=== PATIENT | female | born 1955 | race Caucasian/White ===

== ENCOUNTER → 2023-08-09 15:13 | Outpatient (REF) | payer OTHER, SELFPAY | LOC: HWRAD 15:13 | PROVIDERS: ATTENDING PHYSICIAN Family Medicine | DX: Z78.0 Asymptomatic menopausal state (principal) | CPT/HCPCS: 77080 ==

== ENCOUNTER → 2023-09-07 12:23 | Outpatient (REF) | payer OTHER, SELFPAY | LOC: HWRAD 12:23 | PROVIDERS: ATTENDING PHYSICIAN Nurse Practitioner | DX: M25.561 Pain in right knee (principal) | CPT/HCPCS: 73564 ==

== ENCOUNTER → 2023-09-22 10:20 | Outpatient (REF) | payer OTHER, SELFPAY | LOC: RAD 10:20 | PROVIDERS: ATTENDING PHYSICIAN Physician Assistant; FAMILY PHYSICIAN Family Medicine | DX: M79.671 Pain in right foot (principal) | CPT/HCPCS: 73630 ==

== ENCOUNTER 2023-12-07 10:04 | Outpatient (RCR) | payer OTHER, SELFPAY | END 2023-12-07 23:59 | disposition home or self-care (01) | LOC: ROT 10:04 | PROVIDERS: ATTENDING PHYSICIAN Family Medicine | DX: M77.8 Other enthesopathies, not elsewhere classified (principal); Z73.6 Limitation of activities due to disability; M25.532 Pain in left wrist | CPT/HCPCS: 97166; 97535 ==

== ENCOUNTER 2023-12-22 08:57 | Outpatient (RCR) | payer OTHER, SELFPAY | END 2023-12-22 23:59 | disposition home or self-care (01) | LOC: ROT 08:57 | PROVIDERS: ATTENDING PHYSICIAN Family Medicine | DX: M77.8 Other enthesopathies, not elsewhere classified (principal) | CPT/HCPCS: 97010; 97110 ==

== ENCOUNTER → 2024-01-04 15:11 | Outpatient (REF) | payer OTHER, SELFPAY | LOC: PAVMRI 15:11 | PROVIDERS: ATTENDING PHYSICIAN Family Medicine | DX: M54.16 Radiculopathy, lumbar region (principal) | CPT/HCPCS: 72148 ==

== ENCOUNTER → 2024-01-18 06:21 | Day surgery (SDC) | payer OTHER, SELFPAY ==
[2024-01-18 07:35] LABS: Glucose - Point of Care 150 mg/dl (70-99)
== END ==
LOC: GI 06:21
PROVIDERS: ATTENDING PHYSICIAN Internal Medicine Gastroenterology
DX: R19.4 Change in bowel habit (principal); K64.8 Other hemorrhoids; K57.30 Diverticulosis of large intestine without perforation or abscess without bleeding
CPT/HCPCS: 45378; 82962

== ENCOUNTER → 2024-01-28 10:13 | Outpatient (REF) | payer OTHER, SELFPAY | LOC: HWRAD 10:13 | PROVIDERS: ATTENDING PHYSICIAN Urology; FAMILY PHYSICIAN Family Medicine | DX: N39.0 Urinary tract infection, site not specified (principal); N20.0 Calculus of kidney; M62.89 Other specified disorders of muscle; N95.8 Other specified menopausal and perimenopausal disorders | CPT/HCPCS: 76770; 76856 ==

== ENCOUNTER → 2024-02-25 14:03 | Outpatient (REF) | payer OTHER, SELFPAY | LOC: HWWDC 14:03 | PROVIDERS: ATTENDING PHYSICIAN Family Medicine | DX: Z12.31 Encounter for screening mammogram for malignant neoplasm of breast (principal) | CPT/HCPCS: 77063; 77067 ==

== ENCOUNTER → 2024-03-06 10:19 | Outpatient (REF) | payer OTHER, SELFPAY ==
[2024-03-06 12:09] LABS: % Basophils 0.9 % (0-2); % Eosinophils 1.3 % (0-6); % Immature Granulocytes 0.8 % (0-0.5); % Lymphocytes 22.5 % (20.5-51.1); % Monocytes 9.8 % (1.7-9.3); % Neutrophils 64.7 % (42.2-75.2); Absolute Basophils 0.1 10^3/uL (0-0.2); Absolute Eosinophils 0.1 10^3/uL (0-0.7); Absolute Immature Granulocytes 0.1 10^3/uL (0-0.05); Absolute Lymphocytes 1.8 10^3/uL (1.2-3.4); Absolute Monocytes 0.8 10^3/uL (0.1-0.6); Absolute Neutrophils 5.1 10^3/uL (1.4-6.5); Hematocrit 33.7 % (37.0-47.0); Hemoglobin 11.6 g/dL (12.0-16.0); Mean Corp Hgb Conc. 34.4 g/dL (33.0-37.0); Mean Corpuscular Hgb 34.5 pg (27.0-31.0); Mean Corpuscular Volume 100.3 fL (81.0-99.0); Mean Platelet Volume 9.7 fL (7.4-10.4); Nucleated Red Blood Cells % 0 %; Platelet Count 306 10^3/uL (130-400); Red Blood Cell Count 3.36 10^6/uL (4.20-5.40); Red Cell Dist. Width 12.5 % (11.5-14.5); White Blood Cell Count 7.9 10^3/uL (4.8-10.8)
[2024-03-06 12:35] LABS: Blood Urea Nitrogen 31 mg/dl (7-17); Carbon Dioxide 25 mmol/L (22-30); Chloride 101 mmol/L (98-107); Glucose 108 mg/dl (70-99); Iron 139 ug/dl (37-170); Potassium 5.1 mmol/L (3.5-5.1); Sodium 135 mmol/L (135-145)
[2024-03-06 12:44] LABS: Percent Saturation 46 % (20-50); Total Iron Binding Capacity 301 ug/dl (265-497)
[2024-03-06 13:06] LABS: TSH 0.61 uIU/ml (0.47-4.68)
[2024-03-06 13:42] LABS: Folate 8.6 ng/ml (2.76-20)
[2024-03-06 14:42] LABS: Vitamin B12 309 pg/ml (239-931)
== END ==
LOC: HWRAD 10:19
PROVIDERS: ATTENDING PHYSICIAN Otolaryngology; FAMILY PHYSICIAN Family Medicine
DX: E04.2 Nontoxic multinodular goiter (principal); R25.2 Cramp and spasm; R20.2 Paresthesia of skin; M48.061 Spinal stenosis, lumbar region without neurogenic claudication
CPT/HCPCS: 36415; 76536; 80048; 82607; 82728; 82746; 83540; 83550; 84443; 85025

== ENCOUNTER → 2024-05-05 15:01 | Outpatient (REF) | payer OTHER, SELFPAY | LOC: HWRCS 15:01 | PROVIDERS: ATTENDING PHYSICIAN Internal Medicine Cardiovascular Disease; FAMILY PHYSICIAN Family Medicine | DX: I10 Essential (primary) hypertension (principal); Z01.818 Encounter for other preprocedural examination; R94.31 Abnormal electrocardiogram [ECG] [EKG]; R06.09 Other forms of dyspnea | CPT/HCPCS: 93306 ==

== ENCOUNTER → 2024-05-11 11:06 | Outpatient (REF) | payer OTHER, SELFPAY | LOC: DHCBC/DCA 11:06 | PROVIDERS: ATTENDING PHYSICIAN Internal Medicine Cardiovascular Disease; FAMILY PHYSICIAN Family Medicine | DX: Z01.818 Encounter for other preprocedural examination (principal); R94.31 Abnormal electrocardiogram [ECG] [EKG]; R06.09 Other forms of dyspnea; I10 Essential (primary) hypertension | CPT/HCPCS: 78452; 93017; A9500; J2785 ==

== ENCOUNTER 2024-05-24 06:14 | Day surgery (SDC) | payer OTHER, SELFPAY ==
[2024-05-02 11:04] VITALS: BMI 33.0
[2024-05-02 11:30] LABS: Hematocrit 35.6 % (37.0-47.0); Hemoglobin 11.7 g/dL (12.0-16.0); Mean Corp Hgb Conc. 32.9 g/dL (33.0-37.0); Mean Corpuscular Hgb 34.6 pg (27.0-31.0); Mean Corpuscular Volume 105.3 fL (81.0-99.0); Mean Platelet Volume 9.9 fL (7.4-10.4); Platelet Count 366 10^3/uL (130-400); Red Blood Cell Count 3.38 10^6/uL (4.20-5.40); Red Cell Dist. Width 12.2 % (11.5-14.5); White Blood Cell Count 7.6 10^3/uL (4.8-10.8)
[2024-05-02 11:46] LABS: Glycohemoglobin (HgbA1c) 5.8 % (4.0-5.6)
[2024-05-02 11:54] LABS: ALT (SGPT) 27 U/L (0-35); AST (SGOT) 24 U/L (14-36); Albumin 4.3 g/dl (3.5-5.0); Alkaline Phosphatase 46 U/L (38-126); Blood Urea Nitrogen 30 mg/dl (7-17); Calcium 9.5 mg/dl (8.4-10.2); Carbon Dioxide 25 mmol/L (22-30); Chloride 101 mmol/L (98-107); Estimated Creatinine Clearance 42 ml/min; Glucose 117 mg/dl (70-99); Potassium 4.2 mmol/L (3.5-5.1); Sodium 138 mmol/L (135-145); Total Bilirubin 0.4 mg/dl (0.2-1.3); Total Protein 6.9 g/dl (6.3-8.2)
[2024-05-22 14:10] VITALS: BMI 33.0
--- NOTE | 2024-05-23 09:28 | VNURNOTE ---
Patient is scheduled for an elective THR on 05/24/24- she is a same day patient with Dr Lopez. Spoke with patient prior to surgery. Introduced role of [facility] Lia[facility]. Patient reports that she lives with spouse in a MULTI story home.
PCP Dr Arlene Cabello
Discussed [facility] joint protocol and post surgical plans.
Patient states plan is for her to stay overnight and will go to [facility] for outpatient PT. Scheduled for 05/26/24.
Patient states her spouse will be home with her.
Plan: Outpt PT on 05/26/24
[2024-05-24] VITALS (18 sets, daily range): BP systolic 96–129; BP diastolic 42–78; PULSE 62–65; O2SAT 91; BMI 33.0
[2024-05-24 07:37] LABS: Glucose - Point of Care 130 mg/dl (70-99)
[2024-05-24] MEDS: TYLENOL 650 MG PO ×3 (07:41→20:32)
[2024-05-24] MEDS: CELEBREX 200 MG PO (07:41)
[2024-05-24] MEDS: NORMOSOL-R/PLASMALYTE-A 1000 IV ×2 (07:53→13:06)
--- NOTE | 2024-05-24 07:58 | W.DS.TRANS ---
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
-
Discharge Instructions:
Sleep Apnea Risk Intermediate
Discharge Diagnosis/Procedures R TKA 05/24/23
Diet As tolerated
Activity With Walker
Driving Restrictions No driving
Bathing Restrictions OK to Shower
Other Services PT
Instructions:
Stand-Alone Forms: SDS Total Hip and Knee D/C
Changes to Home Medications: Yes
Discharge Medications:
DC Medications w/original date entered in [employer]
cholecalciferol (vitamin D3) 50 mcg (2,000 unit) capsule (Vitamin D3) 2,000 unit PO DAILY Supplement 04/22/18
imipramine HCl 10 mg tablet 10 mg PO QPM Mental Health/Anxiety 04/22/18
amlodipine 10 mg tablet 10 mg PO QPM ##1 05/19/18
aspirin 81 mg tablet,delayed release 81 mg PO DAILY Blood clot prevention/tx 05/08/20
atenolol 50 mg tablet 75 mg PO BID Blood pressure 05/08/20
evolocumab 140 mg/mL subcutaneous pen injector (Repatha SureClick) 140 mg SQ Q2W High cholesterol 08/02/21
ferrous sulfate 325 mg (65 mg iron) tablet (FeroSul) 325 mg PO DAILY Supplement 08/02/21
metformin 500 mg tablet 250 mg PO DAILY Diabetes 08/02/21
omega-3s 800 mg-dha 186.67 mg-epa 560 mg-fish-vit D3 8.33 mcg capsule (De3 Dry Eye [place] Benefits) 1 ea PO DAILY Supplement 08/02/21
hydralazine 25 mg tablet 25 mg PO TID Blood pressure 09/19/22
olmesartan 40 mg tablet 40 mg PO DAILY 09/19/22
lactobacillus combination no.4 3 billion cell capsule (Probiotic) 3,000 mmu cells PO DAILY 05/18/24
acetaminophen 325 mg tablet 650 mg (2 x 325 mg) PO QID #0 tabs 05/24/24
aspirin 325 mg tablet 325 mg PO DAILY blood clot prevention #1 tab 05/24/24
cefadroxil 500 mg capsule 500 mg PO BID infection prevention #14 caps 05/24/24
dexamethasone 4 mg tablet 4 mg PO BID inflammation #6 tabs 05/24/24
docusate sodium 100 mg capsule (Colace) 100 mg PO BID stool softner #1 cap 05/24/24
famotidine 40 mg tablet 40 mg PO HS 05/24/24
hydrocortisone 1 %-iodoquinol 1 % topical cream 1 applic topical DAILY PRN skin irritation 05/24/24
magnesium hydroxide 400 mg/5 mL oral suspension (Milk of Magnesia) 30 ml PO HS PRN Constipation #1 mL 05/24/24
mupirocin 2 % topical ointment 1 applic topical BID 05/24/24
ondansetron 4 mg disintegrating tablet 4 mg PO Q6H PRN n/v #20 tabs 05/24/24
oxycodone 5 mg tablet 5 mg PO Q6H PRN 1 tab moderate pain, 2 tabs severe pain #30 tabs 05/24/24
sennosides 8.6 mg tablet (Senokot) 17.2 mg (2 x 8.6 mg) PO BID laxative #2 tabs 05/24/24
spironolactone 25 mg tablet 25 mg PO DAILY 05/24/24
Home Medication Changes
aspirin 325 mg tablet 325 mg PO DAILY blood clot prevention #1 tab 05/24/24
cefadroxil 500 mg capsule 500 mg PO BID infection prevention #14 caps 05/24/24
dexamethasone 4 mg tablet 4 mg PO BID inflammation #6 tabs 05/24/24
docusate sodium 100 mg capsule (Colace) 100 mg PO BID stool softner #1 cap 05/24/24
famotidine 40 mg tablet 40 mg PO HS 05/24/24
hydrocortisone 1 %-iodoquinol 1 % topical cream 1 applic topical DAILY PRN skin irritation 05/24/24
magnesium hydroxide 400 mg/5 mL oral suspension (Milk of Magnesia) 30 ml PO HS PRN Constipation #1 mL 05/24/24
mupirocin 2 % topical ointment 1 applic topical BID 05/24/24
ondansetron 4 mg disintegrating tablet 4 mg PO Q6H PRN n/v #20 tabs 05/24/24
oxycodone 5 mg tablet 5 mg PO Q6H PRN 1 tab moderate pain, 2 tabs severe pain #30 tabs 05/24/24
sennosides 8.6 mg tablet (Senokot) 17.2 mg (2 x 8.6 mg) PO BID laxative #2 tabs 05/24/24
spironolactone 25 mg tablet 25 mg PO DAILY 05/24/24
Pending Results: No
[2024-05-24 10:14] LABS: Glucose - Point of Care 116 mg/dl (70-99)
[2024-05-24] MEDS: ROXICODONE 5 MG PO (11:36)
[2024-05-24] MEDS: TENORMIN PO (13:08)
[2024-05-24] MEDS: FEOSOL 325 MG PO (13:11)
[2024-05-24] MEDS: VISBIOME 1 CAP PO (13:12)
[2024-05-24] MEDS: GLUCOPHAGE PO (13:13)
[2024-05-24] MEDS: ULTRAM PO (13:26)
[2024-05-24] MEDS: ANCEF 5 IV (15:49)
[2024-05-24 16:53] LABS: Glucose - Point of Care 220 mg/dl (70-99)
[2024-05-24] MEDS: ASPIRIN 325 MG PO (17:48)
[2024-05-24] MEDS: TOFRANIL 10 MG PO (17:48)
[2024-05-24] MEDS: COLACE 100 MG PO (20:31)
[2024-05-24] MEDS: BACTROBAN 2% OINTMENT 1 APPLIC NASAL (20:31)
[2024-05-24] MEDS: SENOKOT 17.2 MG PO (20:31)
[2024-05-24] MEDS: TENORMIN 50 MG PO (20:31)
[2024-05-24] MEDS: ULTRAM 50 MG PO (20:32)
[2024-05-24] MEDS: DECADRON 4 MG IV (20:32)
[2024-05-24 21:40] LABS: Glucose - Point of Care 168 mg/dl (70-99)
[2024-05-24] MEDS: NEURONTIN 300 MG PO (22:30)
[2024-05-24] MEDS: PEPCID 20 MG PO (22:30)
[2024-05-25] MEDS: ANCEF 5 IV (00:34)
[2024-05-25] MEDS: TYLENOL 650 MG PO ×3 (00:34→08:15)
[2024-05-25] MEDS: MELATONIN 5 MG PO (00:34)
[2024-05-25 03:30] VITALS: BP 118/62
[2024-05-25] MEDS: ROXICODONE 5 MG PO ×2 (03:42→10:37)
[2024-05-25 08:00] VITALS: BP 127/58
[2024-05-25] MEDS: ASPIRIN 325 MG PO (08:13)
[2024-05-25 08:14] LABS: Glucose - Point of Care 141 mg/dl (70-99)
[2024-05-25] MEDS: BACTROBAN 2% OINTMENT 1 APPLIC NASAL (08:14)
[2024-05-25] MEDS: FEOSOL 325 MG PO (08:14)
[2024-05-25] MEDS: COLACE 100 MG PO (08:14)
[2024-05-25] MEDS: DECADRON 4 MG IV (08:14)
[2024-05-25] MEDS: TENORMIN 50 MG PO (08:15)
[2024-05-25] MEDS: ULTRAM 50 MG PO (08:15)
[2024-05-25] MEDS: SENOKOT 17.2 MG PO (08:15)
[2024-05-25] MEDS: VISBIOME 1 CAP PO (08:15)
[2024-05-25] MEDS: GLUCOPHAGE 500 MG PO (08:15)
--- NOTE | 2024-05-25 10:09 | W.PN.ORTHO ---
Today's Communication / Plan
-
d/c
Assessment
.
Dressing:
Clean, dry and intact.
Plan
.
Surgery / Date: R TKA 05/24/23
DVT Prophylaxis: Aspirin
Activity:
Out of bed.
PT/OT
Discharge Plan: Home w/ Outpatient PT
Subjective
.
.:
Patient resting comfortably.
Vital Signs and Labs
.
Vital Signs and Labs:
Lab Results
05/02/24 09:37
05/02/24 09:37
Temp Pulse Resp BP Pulse Ox
98.0 F 70 16 127/58 98
05/25/24 08:00 05/25/24 08:15 05/25/24 08:00 05/25/24 08:15 05/25/24 08:00
Non-invasive Hgb result: 10.6
Physical Exam
-
HEENT: No pallor, cyanosis, or jaundice. Throat clear.
NECK: Supple. No JVD.
RESPIRATORY: Lungs clear to auscultation.
CVS: S1, S2 normal. RRR.� No murmur, rub or gallop.
ABDOMEN: Soft, non-tender. No distension. BS+/normal.
EXTREMITIES: strength equal, no calf pain with palpation
GLOBAL CATEGORY MANAGER: AOx3. No focal deficits. 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
--- NOTE | 2024-05-25 11:01 | CM ---
Met with pt at bedside
Pt reports she lives with her in a 1 story, modular home; 2 steps to enter, FF set-up
Independent, retired, drives
DME - rolling walker, single point cane, commode, wheel chair, shower chair, toilet rails
SNF/HH - denies past hx
Has ride at discharge
PCP - Arlene Cabello
Pharm - [facility] on [address]
Has outpatient PT appt tomorrow 05/26 at [place] - Angelia Aguilar. Has RX. Has transportation
Plan - home with outpatient PT
[2024-05-25 12:04] VITALS: BP 135/62
== END 2024-05-25 12:29 | disposition home or self-care (01) ==
LOC: SDS 06:14
PROVIDERS: ATTENDING PHYSICIAN Orthopaedic Surgery; FAMILY PHYSICIAN Family Medicine; REFERRING PHYSICIAN Internal Medicine Cardiovascular Disease
DX: M17.11 Unilateral primary osteoarthritis, right knee (principal); E66.01 Morbid (severe) obesity due to excess calories; Z68.33 Body mass index [BMI] 33.0-33.9, adult
CPT/HCPCS: 27447; 36415; 73560; 80053; 82962; 83036; 85027; 86850; 86900; 86901; 87070; 97110; 97116; 97162; 97166; 97530; 97535; C1713; C1776

== ENCOUNTER → 2024-08-17 14:38 | Outpatient (REF) | payer OTHER, SELFPAY | LOC: HWRAD 14:38 | PROVIDERS: ATTENDING PHYSICIAN Internal Medicine; FAMILY PHYSICIAN Family Medicine | DX: N28.1 Cyst of kidney, acquired (principal) | CPT/HCPCS: 76770 ==

== ENCOUNTER 2024-09-16 16:43 | Inpatient (IN) | payer OTHER, SELFPAY ==
[2024-09-16 12:51] VITALS: BP 112/56
--- NOTE | 2024-09-16 13:26 | ED TECH ---
unable to obtain labs in triage.
[2024-09-16 14:21] VITALS: BMI 33.6
[2024-09-16 14:34] LABS: % Basophils 0.9 % (0-2); % Immature Granulocytes 1.1 % (0-0.5); % Lymphocytes 15.8 % (20.5-51.1); % Monocytes 9.5 % (1.7-9.3); % Neutrophils 70.7 % (42.2-75.2); Absolute Basophils 0.1 10^3/uL (0-0.2); Absolute Eosinophils 0.2 10^3/uL (0-0.7); Absolute Immature Granulocytes 0.1 10^3/uL (0-0.05); Absolute Lymphocytes 1.4 10^3/uL (1.2-3.4); Absolute Monocytes 0.9 10^3/uL (0.1-0.6); Absolute Neutrophils 6.5 10^3/uL (1.4-6.5); Hematocrit 35.7 % (37.0-47.0); Hemoglobin 12.4 g/dL (12.0-16.0); Mean Corp Hgb Conc. 34.7 g/dL (33.0-37.0); Mean Corpuscular Hgb 32.9 pg (27.0-31.0); Mean Corpuscular Volume 94.7 fL (81.0-99.0); Mean Platelet Volume 9.1 fL (7.4-10.4); Nucleated Red Blood Cells % 0 %; Platelet Count 382 10^3/uL (130-400); Red Blood Cell Count 3.77 10^6/uL (4.20-5.40); Red Cell Dist. Width 11.6 % (11.5-14.5); White Blood Cell Count 9.1 10^3/uL (4.8-10.8)
--- NOTE | 2024-09-16 14:49 | ED.GENMED ---
History of Present Illness
General
Chief Complaint: Abnormal Lab Value
Source: patient and spouse
Exam Limitations: none
Time Seen by Provider: 09/16/24 14:37
Nursing documentation reviewed up to this point in time: agreed with
History of Present Illness
History of Present Illness:
69-year-old female presents emergency department due to a high potassium. Blood work drawn yesterday, 6.5. 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 Rm She takes Aldactone 25 mg daily, and olmesartan. She states
she felt heavy this morning, but denies any pain or other symptoms.
Past History
Past History
ED Past Medical History: CAD, HTN and Hypercholesterolemia
ED Past Surgical History: None
Social History
Tobacco: Non-smoker
Alcohol: Occasional
Drug: None
Personal:
Living: with family
Employment: Retired
Family History
Family History: CAD
Review of Systems
Review of Systems
Allergies reviewed?: Yes
All Other Systems: Not applicable
Constitutional: Reports fatigue
EENT: Reports no symptoms
Respiratory: Reports no symptoms
Cardiac: Reports no symptoms
ABD/GI: Reports no symptoms
: Reports no symptoms
Musculoskeletal: Reports no symptoms
Skin: Reports no symptoms
Neurological: Reports no symptoms
Endocrine: Reports no symptoms
Hematologic/Lymphatic: Reports no symptoms
Psychiatric: Reports no symptoms
Phy Exam
Physical Exam
Physical Exam:
Patient will
Physical Exam
General: no apparent distress, not acutely ill
Neck: supple. no meningeal signs. normal posterior pharynx
Heart: s1/s2 regular rate and rhythm, no murmur. equal radial
pulses.
HEENT: Pupils equal round reactive to light, EOMI
Lungs: no acute respiratory distress. clear bilaterally
Abdomen: normal bowel sounds. not tender. no CVAT
Neuro: alert and oriented. no focal neurological deficits cranial nerves II through XII intact
Skin: no rash
Psychiatric: well kept. interactive and cooperative
Extremities: no edema. no calf tenderness. negative homans. good distal pulses
All
Course
Orders/Labs/Results
Orders:
Orders
09/16/24 12:55
Electrocardiogram (*1) Urgent
Reason for Study: Other
Other Reason for Exam: hyperkalemia
EKG- Treatment ONCE
09/16/24 14:25
Complete Blood Count/With Diff Urgent
Comprehensive Metabolic Panel Urgent
09/16/24 15:11
Cardiac Monitoring- Treatment ONCE
Dextrose 50%-Water [Dextrose 50% Syringe] 12.5 grams IV [id number] PRN
Dextrose 50%-Water [Dextrose 50% Syringe] 25 grams IV NOW STA
Insulin Human Regular [Novolin R] 5 units IV NOW STA
Bedside Glucose PRE IV Insulin- HyperK+ NOW
09/16/24 16:41
Bedside Glucose POST IV Insulin- HyperK+ Q1HX2,Q2HX2
09/16/24 17:41
Potassium Urgent
Comment: draw 2 hours after regular insulin IV administration
Abnormal Lab Results
09/16/24
14:25
RBC 3.77 L 10^6/uL
(4.20-5.40)
Hct 35.7 L %
(37.0-47.0)
MCH 32.9 H pg
(27.0-31.0)
Abs Immat Gran (auto) 0.1 H 10^3/uL
(0-0.05)
Absolute Monos (auto) 0.9 H 10^3/uL
(0.1-0.6)
Immature Gran % 1.1 H %
(0-0.5)
Lymphocytes % 15.8 L %
(20.5-51.1)
Monocytes % 9.5 H %
(1.7-9.3)
Sodium 124 L mmol/L
(135-145)
Potassium 6.5 H* mmol/L
(3.5-5.1)
Chloride 94 L mmol/L
(98-107)
Carbon Dioxide 16 L mmol/L
(22-30)
BUN 41 H mg/dl
(7-17)
Creatinine 1.8 H mg/dL
(0.6-1.0)
Glucose 106 H mg/dl
(70-99)
09/16/24 14:25
Vital Signs
Initial and Last Documented VS:
Initial Vital Signs
Temp Pulse Resp BP Pulse Ox
98.4 F 63 18 112/56 99
09/16/24 12:51 09/16/24 12:51 09/16/24 12:51 09/16/24 12:51 09/16/24 12:51
Last Documented Vital Signs
Temp Pulse Resp BP Pulse Ox
98.4 F 63 18 112/56 99
09/16/24 12:51 09/16/24 12:51 09/16/24 12:51 09/16/24 12:51 09/16/24 12:51
MDM/Problems Addressed
Differential Diagnosis Includes:
Hyperkalemia, hyponatremia, acute renal failure
MDM/Problems Addressed:
69-year-old female with acute renal failure, hyponatremia and hyperkalemia. Insulin and glucose ordered. Admit to hospitalist. Patient was sent in by nephrology. They have been notified by [place] text. Hospitalist notified via [place] text.
Chronic conditions affecting care: HTN
Acute Exacerbation and/or Progression of Chronic Illness: HTN
*Pulse Oximetry
Patient hypoxic: no
*EKG
Interpreted by ED Provider?: Yes
EKG Intrepretation Date: 09/16/24
EKG Intrepretation Time: 13:01
Interpretation: abnormal
Comparison EKG: no changes
Heart Rate: 61
Rate: normal
Rhythm: sinus
[place]: normal axis
Interval: first degree heart block
QRS Pattern: normal QRS
Ischemia: no ischemia
*Locks Inspector Interpretation
Rate: normal
Interpretation: normal
Heart Rate: 62
Rhythm: sinus
*Critical Care Note
Total Time (30-74mins, 75-104mins- exclusive of procedures): 31
comment:
Critical care statement: A total of 31 minutes of critical care time was provided for this patient. This includes management of unstable vital signs, evaluation of the patient at bedside, reviewing the patient's pertinent medical records, discussion
with consultants, review of old EKGs and review of pertinent medical records. This time with separate from time utilized to perform the aforementioned documented procedures
Data Reviewed
Review of Other/Old Records Reveals: Labs (Prior sodium 138, potassium 4.2 and creatinine 1.2 on 05/02/2024)
Source: records
Patient Management
Social determinants of health affecting care: Living situation and Strong social support
Discussion with other providers: Hospitalist and Mill Manager (Nephrology)
Escalation/DeEscalation of care consider admission/obs:
Admit indicated
ED Attending Note
-
Portions of this chart may have been created with voice recognition software.� Occasional wrong word or��sound alike� substitutions may have occurred due to the inherent limitations of voice recognition software.
Discharge Plan
Departure
Patient Disposition: Admit
Date of Disposition: 09/16/24
Time of Disposition: 15:15
Admit to: IMU
Presentation/result/management discussed w/ accepting MD/DO: Hospitalist
Patient with high blood pressure during this ER visit?: Yes
Condition: Good
Discharge Problem:
Acute hyperkalemia, Acute hyponatremia, Acute renal failure
Prescriptions:
No Action
imipramine HCl 10 MG tablet
10 mg PO QPM
cholecalciferol (vitamin D3) [Vitamin D3] 2,000 UNIT capsule
2,000 unit PO DAILY
amlodipine 10 MG tablet
10 mg PO QPM Qty: 1 0RF
Rx Instructions:
hold sbp <130
aspirin 81 MG tablet,delayed release (DR/EC)
81 mg PO DAILY
atenolol 50 MG tablet
75 mg PO BID
metformin 500 MG tablet
250 mg PO DAILY
ferrous sulfate [FeroSul] 325 MG tablet
325 mg PO DAILY
Repatha SureClick 140 MG/ML pen injector
140 mg SQ Q2W
De3 Dry Eye [place] Benefits 1 EACH capsule
1 ea PO DAILY
hydralazine 25 mg tablet
25 mg PO TID
olmesartan 40 mg tablet
40 mg PO DAILY
Probiotic 3 billion cell Capsule
3,000 mmu cells PO DAILY
famotidine 40 mg Tablet
40 mg PO HS
spironolactone 25 mg Tablet
25 mg PO DAILY
mupirocin 2 % Ointment
1 applic TOPICAL BID
Patient Comments:
started treatment wednesday05/21/24 and completed BID
hydrocortisone-iodoquinol 1-1 % Cream
1 applic TOPICAL DAILY PRN (Reason: skin irritation)
aspirin 325 mg tablet
325 mg PO DAILY Qty: 1 0RF
Rx Instructions:
Take with food
cefadroxil 500 mg capsule
500 mg PO BID Qty: 14 0RF
Rx Instructions:
*Take w/ food
*Take w/ probiotic
*POST-OP USE
dexamethasone 4 mg tablet
4 mg PO BID Qty: 6 0RF
Rx Instructions:
take with food
post-op use only
docusate sodium [Colace] 100 mg capsule
100 mg PO BID Qty: 1 0RF
magnesium hydroxide [Milk of Magnesia] 400 mg/5 mL suspension
30 ml PO HS PRN (Reason: Constipation) Qty: 1 0RF
ondansetron 4 mg tablet,disintegrating
4 mg PO Q6H PRN (Reason: n/v) Qty: 20 0RF
Rx Instructions:
take 1/2h b/f pain med if recurrent nausea
allow to dissolve in mouth w/o water
oxycodone 5 mg tablet
5 mg PO Q6H PRN (Reason: 1 tab moderate pain, 2 tabs severe pain) Qty: 30 0RF
Rx Instructions:
Ongoing therapy
sennosides [Senokot] 8.6 mg tablet
17.2 mg PO BID Qty: 2 0RF
acetaminophen 325 MG tablet
650 mg PO QID Qty: 0 0RF
gabapentin 300 mg capsule
300 mg PO HS Qty: 10 0RF
Interventions
Interventions:
*Risk Screen - Suicide Last Done: 09/16/24 12:51
*General Assessment Last Done: 09/16/24 12:51
*Neglect/Abuse Screening Last Done: 09/16/24 12:51
Discharge Date and Time
Print Language: YORUBA
[2024-09-16 14:58] LABS: ALT (SGPT) 23 U/L (0-35); AST (SGOT) 25 U/L (14-36); Alkaline Phosphatase 64 U/L (38-126); Blood Urea Nitrogen 41 mg/dl (7-17); Calcium 9.9 mg/dl (8.4-10.2); Carbon Dioxide 16 mmol/L (22-30); Chloride 94 mmol/L (98-107); Estimated Creatinine Clearance 27 ml/min; Glucose 106 mg/dl (70-99); Potassium 6.5 mmol/L (3.5-5.1); Sodium 124 mmol/L (135-145); Total Bilirubin 0.6 mg/dl (0.2-1.3); Total Protein 7.8 g/dl (6.3-8.2); eGFR 30.12
[2024-09-16] MEDS: NOVOLIN R 5 UNITS IV (15:21)
[2024-09-16] MEDS: DEXTROSE 50% SYRINGE 25 GRAMS IV (15:21)
[2024-09-16 15:22] LABS: Glucose - Point of Care 106 mg/dl (70-99)
--- NOTE | 2024-09-16 15:38 | HPS.HSE ---
Addendum entered and electronically signed by Jeremiah Subramanian MD 09/16/24 16:41:
see update note for addendum
Original Note:
Family Physician
-
Family Physician: Arlene Cabello
Chief Complaint
-
Abnormal labs, hyperkalemia
History of Present Illness
69-year-old female sent by nephrology in for hyperkalemia with potassium yesterday of 6.[address] Rm. Her current potassium is 6.5 in the ER she is on Aldactone 25 mg daily and olmesartan. In the ER she was treated with dextrose
and insulin. She denies headache, sore throat, fever, chills, chest pain, palpitations, cramping, cough, shortness of breath, abdominal pain, nausea, vomiting, diarrhea, urinary symptoms.
She had past medical history of CAD, HTN�multidrug regimen HLD, CKD 3 A, GERD, DM2, neuropathy, depression, iron deficiency vitamin D deficiency
Medical History
Past Medical History
Past Medical History: Reports Other
Additional Past Medical History:
CAD
HTN�multidrug regimen
HLD
CKD 3 A
GERD,
DM2
neuropathy
depression
Past Surgical History: Reports Other
Additional Past Surgical History:
Tonsillectomy
Bilateral knee replacement with [facility] last 10 May 2023
Social History
Tobacco: Non-smoker
Alcohol: Occasional (Once a week)
Drug: None
Personal:
Living: With Family
Employment: Retired
Family History
Family History: Other (Mother late 70s [place], father early 70s alcohol abuse cirrhosis, liver cancer, 1 brother Down syndrome history DM 2, other brother anxiety, 4 sisters some with hypertension)
Allergies / Home Medications
Allergies reflects when Allergies were last updated in [employer].
Home Medications with original date entered in [employer]
Allergy/Medication List:
Allergies
Allergy/AdvReac Type Severity Reaction Status Date / Time
Influenza Virus Vaccines Allergy Severe Guillane Verified 05/24/24 06:57
barre
latex Allergy Rash Verified 05/24/24 06:57
Home Medications
cholecalciferol (vitamin D3) 50 mcg (2,000 unit) capsule (Vitamin D3) 2,000 unit PO DAILY Supplement 04/22/18
amlodipine 10 mg tablet 10 mg PO QPM ##1 05/19/18
atenolol 50 mg tablet 75 mg PO BID Blood pressure 05/08/20
evolocumab 140 mg/mL subcutaneous pen injector (Repatha SureClick) 140 mg SQ Q2W High cholesterol 08/02/21
ferrous sulfate 325 mg (65 mg iron) tablet (FeroSul) 325 mg PO DAILY Supplement 08/02/21
metformin 500 mg tablet 250 mg PO DAILY Diabetes 08/02/21
omega-3s 800 mg-dha 186.67 mg-epa 560 mg-fish-vit D3 8.33 mcg capsule (De3 Dry Eye [place] Benefits) 1 ea PO DAILY Supplement 08/02/21
hydralazine 25 mg tablet 25 mg PO TID Blood pressure 09/19/22
olmesartan 40 mg tablet 40 mg PO DAILY 09/19/22
famotidine 40 mg tablet 40 mg PO HS 05/24/24
hydrocortisone 1 %-iodoquinol 1 % topical cream 1 applic topical DAILYPRN PRN skin irritation 05/24/24
spironolactone 25 mg tablet 25 mg PO DAILY 05/24/24
Lactobac no.2-Bifidobac no.1-S. thermo 112.5 billion cell capsule (Visbiome) 1 cap PO DAILY 09/16/24
acetaminophen 650 mg tablet,extended release 650 mg PO DAILYPRN PRN mild pain 09/16/24
aspirin 81 mg tablet 81 mg PO DAILY 09/16/24
gabapentin 100 mg capsule 200 mg PO DAILY@0800 09/16/24
gabapentin 300 mg capsule 300 mg PO BID@1600,2100 sleep/pain 09/16/24
hydrocortisone 2.5 % topical cream with perineal applicator 1 applic MO DAILYPRN PRN hemorrhoids 09/16/24
imipramine HCl 25 mg tablet 25 mg PO QPM 09/16/24
omeprazole 20 mg capsule,delayed release 20 mg PO BID 09/16/24
polyethylene glycol 3350 17 gram oral powder packet 17 g PO HS 09/16/24
silver sulfadiazine 1 % topical cream 1 applic topical DAILYPRN PRN skin irritation 09/16/24
tramadol 50 mg tablet 50 mg PO TID PRN moderate pain 09/16/24
Review of Systems
-
History Source: Patient and Family ( Bill at bedside)
A 12 point ROS was completed and negative except as noted: Yes
Constitutional: Denies Fever, Fatigue or Chills
EENT: Denies Runny Nose
Respiratory: Denies Cough or Trouble Breathing
Cardiac: Denies Chest Pain, Diaphoresis, Palpitations or Syncope
Abdomen/GI: Denies Abdominal Pain, Nausea, Vomiting, Diarrhea, Constipated or Bloody Stools
: Denies Dysuria, Frequency, Flank Pain, Incontinence, Difficulty Voiding, Urgency or Bleeding
Musculoskeletal: Denies Joint Pain, Joint Swelling or Edema
Skin: Denies Itching or Rash
Neurological: Reports Other (No muscle cramping); Denies Dizzy, Headache, Weakness or Numbness
Endocrine: Reports No Symptoms
Hematologic/Lymphatic: Reports No Symptoms
Psych: Reports Calm
Physical Exam
Vital Signs
Vital Signs
Temp Pulse Resp BP Pulse Ox
98.4 F 63 18 112/56 99
09/16/24 12:51 09/16/24 12:51 09/16/24 12:51 09/16/24 12:51 09/16/24 12:51
Physical Exam
General: Comfortable and Conversant; No Pain, Fever or Chills
HEENT: NormoCephalic, Anicteric, Moist mucous membranes, PERRLA, [place] Conjunctivae and No Ptosis
Respiratory: Clear; No Wheezes, Rales or Rhonchi
Cardiac: S1/S2 and Regular Rhythm; No Murmur, Rub, Gallop or Peripheral Edema
Breast: Deferred by me
GI: Soft, Non Tender, Non Distended, Normal Bowel Sounds and No Hepatosplenomegaly
Rectal: Deferred by Provider
Genito-urinary: Deferred by me
Musculoskeletal: No Clubbing, No Cyanosis and No Edema
Skin: Warm and Dry; No Rash or Jaundice
Neuro: AO x 3, No Motor Deficits, Nonfocal/grossly intact, Cranial Nerves Intact and No Sensory Deficits; No Slurred Speech, Facial Droop, Tremors or Sedated
Psych: Calm
Laboratory Results
-
09/16/24 14:25
Laboratory Results
Total Bilirubin 0.6 mg/dl (0.2-1.3) 09/16/24 14:25
AST 25 U/L (14-36) 09/16/24 14:25
ALT 23 U/L (0-35) 09/16/24 14:25
Alkaline Phosphatase 64 U/L (38-126) 09/16/24 14:25
Impression/Plan
-
Impression/plan:
Admit to telemetry
#FROILAN on CKD 3 A
Creat 1.8/bun 41 prior creat 1.10 April 2024
-Hold spironolactone
-IV NSS 100 cc/hr
#Acute hyperkalemia
K6.5
Patient treated with insulin and dextrose in ER
Repeat potassium pending from 1740
- Consult Nephrology as patient was sent in by them
-Hold Aldactone 25 mg daily, olmesartan 40 mg daily
- Hold metformin to 50 mg daily
EKG: Sinus rhythm with first-degree AV block 61 bpm, QTc 420 MS otherwise normal
#HTN�multidrug regimen
BP 112/56
- Continue amlodipine 10 mg every afternoon with hold parameters, atenolol 75 mg p.o. twice daily with hold parameters, hydralazine 25 mg 3 times daily
- Hold olmesartan 40 mg daily, spironolactone 25 mg daily due to hyperkalemia
#DM2
Accu-Cheks with SSI LOW , check HgbA1c
-HOLD metformin to 50 mg daily
#GERD
Continue omeprazole 20 mg twice daily, famotidine 40 mg at bedtime
#CAD
Continue atenolol, aspirin 81 mg daily
#HLD
- Continue Repatha 140 mg SQ every 2 weeks
#Neuropathy
Continue gabapentin 200 mg at 8 AM, 300 mg 1600, 2100
#Depression
- Continue imipramine 25 mg every afternoon
#Bilateral knee replacement follows with [facility]
#iron deficiency
- Continue ferrous sulfate
#vitamin D deficiency
- Continue vitamin D supplement
#Class I obesity�BMI 33.6
Affects all aspects of care
Weight loss recommended
DVT prophylaxis
Subcu heparin
Full code
--- NOTE | 2024-09-16 15:55 | W.PN.UPDATE ---
Update Note
Progress Note Update
I saw and examined the patient.
The MINE MOTOR OPERATOR Cherie's note was reviewed and I agree with the note.
Comment: 69 y/o F, hx of HTN, CKD, CAD s/p stent, HLD, NIDDM presents to ER for abnormal labs. She was sent to ER by outpatient pack train driver for hyperkalemia and FROILAN. Currently asymptomatic. Is on Aldactone and ARB outpatient. in ER, received
temporizing measures (insulin/dextrose) along with IVF and was admitted to hospital for further management.
Physical Exam
General: Comfortable and Conversant; No Pain, Fever or Chills
HEENT: Normocephalic, Anicteric, Moist mucous membranes, PERRLA, [place] Conjunctivae and No Ptosis
Respiratory: Clear; No Wheezes, Rales or Rhonchi
Cardiac: S1/S2 and Regular Rhythm; No Murmur, Rub, Gallop or Peripheral Edema
Breast: Deferred by me
GI: Soft, Non Tender, Non Distended, Normal Bowel Sounds and No Hepatosplenomegaly
Rectal: Deferred by Provider
Genito-urinary: Deferred by me
Musculoskeletal: No Clubbing, No Cyanosis and No Edema
Skin: Warm and Dry; No Rash or Jaundice
Neuro: AO x 3, No Motor Deficits, Nonfocal/grossly intact, Cranial Nerves Intact and No Sensory Deficits; No Slurred Speech, Facial Droop, Tremors or Sedated
Psych: Calm
Assessment:
FROILAN with acute hyperkalemia (life threatening)
History of CKD stage 3a
- s/p temporization in ER - dextrose/insulin, IVF. repeat K pending
- urgent consult Nephrology
- consider Lokelma
- hold ARB/Aldactone, hold other nephrotoxins
- low K diet
- SC/BS protocol
Acute hyponatremia
- IVF
Essential HTN
- continue CCB/BB/Hydralazine - titrate as needed for normotension goal
- hold ARB/Aldactone
HLD
- on Repatha injections
CAD s/p stent
- continue BB/ASA
NIDDM
- hold Metformin
- SSI
DVT ppx: SC heparin
Code: Full
[2024-09-16 16:24] LABS: Glucose - Point of Care 130 mg/dl (70-99)
[2024-09-16 16:25] VITALS: BP 105/51
[2024-09-16 17:00] VITALS: BP 116/74
[2024-09-16 17:31] LABS: Glucose - Point of Care 93 mg/dl (70-99)
[2024-09-16 17:50] LABS: Potassium 5.6 mmol/L (3.5-5.1)
--- NOTE | 2024-09-16 18:42 | PTCARENOTE ---
Received pt from ER via stretcher, accompanied by ER staff. Pt AAO x3, GAXIOLA well, ambulatory to bed, no c/o weakness/dizziness. VSS. Telemetry:NSR with first degree AVB. On room air- pulse ox99%, no SOB noted. Abd large, soft, to start chol
lowering 2 Gm na 2 Gm K- diet. Afebrile; skin intact. Oriented to 4East, currently resting comfortably. Will continue to monitor.
[2024-09-16 18:47] VITALS: BP 114/49; BMI 33.8
[2024-09-16] MEDS: NOVOLOG FLEXPEN-LOW RESISTANCE SC (19:27)
[2024-09-16 19:47] VITALS: BP 98/53
[2024-09-16 19:53] LABS: Glucose - Point of Care 136 mg/dl (70-99)
[2024-09-16] MEDS: NORVASC PO (20:30)
[2024-09-16] MEDS: TOFRANIL PO (20:30)
[2024-09-16] MEDS: NSS 1000 IV (20:30)
[2024-09-16] MEDS: HEPARIN 5000 UNITS SC (20:31)
[2024-09-16] MEDS: PROTONIX 40 MG PO (20:31)
[2024-09-16] MEDS: TENORMIN 75 MG PO (20:31)
[2024-09-16] MEDS: APRESOLINE 25 MG PO (20:32)
[2024-09-16] MEDS: MIRALAX 17 GRAMS PO (20:33)
[2024-09-16] MEDS: NEURONTIN 300 MG PO (20:35)
[2024-09-16 21:52] LABS: Glucose - Point of Care 165 mg/dl (70-99)
[2024-09-16 23:55] VITALS: BP 106/52
[2024-09-17 03:55] VITALS: BP 99/49
[2024-09-17] MEDS: NSS 1000 IV ×2 (05:10→12:33)
[2024-09-17 06:35] LABS: % Basophils 0.8 % (0-2); % Immature Granulocytes 0.8 % (0-0.5); % Lymphocytes 28.3 % (20.5-51.1); % Neutrophils 52.1 % (42.2-75.2); Absolute Basophils 0.1 10^3/uL (0-0.2); Absolute Eosinophils 0.2 10^3/uL (0-0.7); Absolute Immature Granulocytes 0.1 10^3/uL (0-0.05); Absolute Lymphocytes 1.7 10^3/uL (1.2-3.4); Absolute Monocytes 0.9 10^3/uL (0.1-0.6); Absolute Neutrophils 3.2 10^3/uL (1.4-6.5); Hematocrit 31.2 % (37.0-47.0); Hemoglobin 11.1 g/dL (12.0-16.0); Mean Corp Hgb Conc. 35.6 g/dL (33.0-37.0); Mean Corpuscular Hgb 33.4 pg (27.0-31.0); Mean Platelet Volume 9.4 fL (7.4-10.4); Nucleated Red Blood Cells % 0 %; Platelet Count 344 10^3/uL (130-400); Red Blood Cell Count 3.32 10^6/uL (4.20-5.40); Red Cell Dist. Width 11.7 % (11.5-14.5); White Blood Cell Count 6.1 10^3/uL (4.8-10.8)
[2024-09-17 07:10] LABS: ALT (SGPT) 17 U/L (0-35); AST (SGOT) 19 U/L (14-36); Albumin 3.3 g/dl (3.5-5.0); Alkaline Phosphatase 57 U/L (38-126); Blood Urea Nitrogen 39 mg/dl (7-17); Calcium 9.5 mg/dl (8.4-10.2); Carbon Dioxide 16 mmol/L (22-30); Chloride 104 mmol/L (98-107); Estimated Creatinine Clearance 31 ml/min; Glucose 103 mg/dl (70-99); Potassium 5.8 mmol/L (3.5-5.1); Sodium 128 mmol/L (135-145); Total Bilirubin 0.4 mg/dl (0.2-1.3); Total Protein 5.8 g/dl (6.3-8.2)
[2024-09-17 07:17] LABS: Glucose - Point of Care 113 mg/dl (70-99)
[2024-09-17 07:50] VITALS: BP 114/44
[2024-09-17] MEDS: NOVOLOG FLEXPEN-LOW RESISTANCE SC ×3 (08:39→16:42)
[2024-09-17 09:00] VITALS: BMI 33.8
[2024-09-17] MEDS: FEOSOL 325 MG PO (09:04)
[2024-09-17] MEDS: PROTONIX 40 MG PO ×2 (09:04→22:07)
[2024-09-17] MEDS: TENORMIN 75 MG PO ×2 (09:04→22:10)
[2024-09-17] MEDS: NEURONTIN 200 MG PO (09:04)
[2024-09-17] MEDS: VITAMIN D3 (cholecalciferol) 50 MCG PO (09:05)
[2024-09-17] MEDS: VISBIOME 1 CAP PO (09:05)
[2024-09-17] MEDS: PEPCID 20 MG PO (09:05)
[2024-09-17] MEDS: APRESOLINE 25 MG PO ×3 (09:05→22:11)
[2024-09-17] MEDS: HEPARIN 5000 UNITS SC ×2 (09:05→22:04)
[2024-09-17] MEDS: ASPIR LOW (ENTERIC COATED) 81 MG PO (09:05)
[2024-09-17] MEDS: LOKELMA 10 GRAM PO ×3 (09:05→17:19)
[2024-09-17 09:54] LABS: Glycohemoglobin (HgbA1c) 6.1 % (4.0-5.6)
--- NOTE | 2024-09-17 10:10 | W.PN.HOSP.TC ---
Today's Communication/Plan
-
IVF/Lokelma/Low K diet
repeat BMP 4pm
Nephrology consult
Assessment / Plan
Assessment / Plan
Assessment:
FROILAN with acute hyperkalemia (life threatening)
History of CKD stage 3a
- s/p temporization in ER - dextrose/insulin
- K 5.8 today
- continue IVF
- Lokelma today
- hold ARB/Aldactone, hold other nephrotoxins
- low K diet
- consult Nephrology
Acute hyponatremia
- IVF (NSS) with improvement
Essential HTN
- continue CCB/BB/Hydralazine - titrate as needed for normotension goal
- hold ARB/Aldactone
HLD
- on Repatha injections
CAD s/p stent
- continue BB/ASA
NIDDM
- hold Metformin
- SSI
- A1c is 6.1%
DVT ppx: SC heparin
Code: Full
Anticipated Discharge: 24 - 48 hours
Subjective/Interval History
-
Date of Service: September 17, 2024
resting comfortably, no complaints at present
Objective Data
-
Labs:
Laboratory Results
09/17/24
05:52
WBC 6.1
Hgb 11.1 L
Hct 31.2 L
Plt Count 344
Sodium 128 L
Potassium 5.8 H
Chloride 104
Carbon Dioxide 16 L
BUN 39 H
Creatinine 1.6 H
Glucose 103 H
Calcium 9.5
Total Bilirubin 0.4
AST 19
ALT 17
Alkaline Phosphatase 57
Vital Signs:
Vital Signs
Temp Pulse Resp BP Pulse Ox
97.8 F 70 18 114/44 99
09/17/24 07:50 05/11/25 09:05 09/17/24 07:50 09/17/24 09:05 09/17/24 07:50
Physical Exam
-
General: No Apparent Distress
HEENT: Normocephalic and Atraumatic
Respiratory: Negative Wheezes
Cardiac: Regular Rhythm and S1/S2
GI: Soft and Nontender
Genito-urinary: No Costovertebral Tender
Musculoskeletal: No Edema
Neuro: AO x 3
Psych: Calm
Data Reviewed
-
Total Time Spent with Patient (in minutes): 41
Labs: Labs Reviewed by me
[2024-09-17 11:37] VITALS: BP 113/55
--- NOTE | 2024-09-17 12:37 | W.CON.NEPH ---
Consultation
-
Date/Time Consultation Requested: 09/17/2024 9 AM
Date/Time Consultation Performed: 09/17/2024 12 PM
Requesting Provider: Dr. Subramanian
Performing Provider: Dr. Garcia
Reason for Consultation: FROILAN
Medical History
-
Chief Complaint: FROILAN
History of Present Illness:
This is a 69-year-old female who follows with Dr. Rm in our office. She has hypertension typically controlled with a multidrug regimen including spironolactone as well as olmesartan. She also has diabetes on oral medications which is
well-controlled. A little over a week ago she was found to have a urinary tract infection and was given Bactrim double strength twice daily. While this had helped her urinary tract infection she then had blood work which had shown elevated
potassium of 5.5. There is a follow-up blood work after that which showed a potassium of 6.5 and she was sent to the emergency room for evaluation. She was also noted at that time to have elevated potassium along with acute kidney injury with a
creatinine of 1.8 up from her baseline of 1.1.
Past Medical History
CAD
HTN�multidrug regimen
HLD
CKD 3 A
GERD,
DM2
neuropathy
depression
Tonsillectomy
Bilateral knee replacement
Social History
Tobacco: Non-Smoker
Alcohol: Occasional
Family History
Family History: Not Pertinent
Allergies / Home Medications
Allergy/AdvReac Type Severity Reaction Status Date / Time
Influenza Virus Vaccines Allergy Severe Guillane Verified 09/16/24 18:10
barre
latex Allergy Rash Verified 09/16/24 18:10
�Medication �Instructions �Recorded �Confirmed �Type
cholecalciferol (vitamin D3) 50 2,000 unit PO DAILY Supplement 04/22/18 09/16/24 History
mcg (2,000 unit) capsule (Vitamin
D3)
amlodipine 10 mg tablet 10 mg PO QPM ##1 05/19/18 09/16/24 Rx
atenolol 50 mg tablet 75 mg PO BID Blood pressure 05/08/20 09/16/24 History
evolocumab 140 mg/mL subcutaneous 140 mg SQ Q2W High cholesterol 08/02/21 09/16/24 History
pen injector (Shari Sumner)
ferrous sulfate 325 mg (65 mg 325 mg PO DAILY Supplement 08/02/21 09/16/24 History
iron) tablet (FeroSul)
metformin 500 mg tablet 250 mg PO DAILY Diabetes 08/02/21 09/16/24 History
omega-3s 800 mg-dha 186.67 mg-epa 1 ea PO DAILY Supplement 08/02/21 09/16/24 History
560 mg-fish-vit D3 8.33 mcg
capsule (De3 Dry Eye [place]
Benefits)
hydralazine 25 mg tablet 25 mg PO TID Blood pressure 09/19/22 09/16/24 History
olmesartan 40 mg tablet 40 mg PO DAILY 09/19/22 09/16/24 History
famotidine 40 mg tablet 40 mg PO HS 05/24/24 09/16/24 History
hydrocortisone 1 %-iodoquinol 1 % 1 applic topical DAILYPRN PRN skin 05/24/24 09/16/24 History
topical cream irritation
spironolactone 25 mg tablet 25 mg PO DAILY 05/24/24 09/16/24 History
Lactobac no.2-Bifidobac no.1-S. 1 cap PO DAILY 09/16/24 09/16/24 History
thermo 112.5 billion cell capsule
(Visbiome)
acetaminophen 650 mg 650 mg PO DAILYPRN PRN mild pain 09/16/24 09/16/24 History
tablet,extended release
aspirin 81 mg tablet 81 mg PO DAILY 09/16/24 09/16/24 History
gabapentin 100 mg capsule 200 mg PO DAILY@0800 09/16/24 09/16/24 History
gabapentin 300 mg capsule 300 mg PO BID@1600,2100 sleep/pain 09/16/24 09/16/24 History
hydrocortisone 2.5 % topical cream 1 applic [place] DAILYPRN PRN 09/16/24 09/16/24 History
with perineal applicator hemorrhoids
imipramine HCl 25 mg tablet 25 mg PO QPM 09/16/24 09/16/24 History
omeprazole 20 mg capsule,delayed 20 mg PO BID 09/16/24 09/16/24 History
release
polyethylene glycol 3350 17 gram 17 g PO HS 09/16/24 09/16/24 History
oral powder packet
silver sulfadiazine 1 % topical 1 applic topical DAILYPRN PRN skin 09/16/24 09/16/24 History
cream irritation
tramadol 50 mg tablet 50 mg PO TID PRN moderate pain 09/16/24 09/16/24 History
Review of Systems
-
No chest pain or shortness of breath.
Mild episode of dyspnea within the last week of 100 feet
All other systems: Negative unless noted
Physical Exam
Vital Signs
Vital Signs
Temp Pulse Resp BP Pulse Ox
97.8 F 76 18 113/55 98
09/17/24 11:37 09/17/24 11:37 09/17/24 11:37 09/17/24 11:37 09/17/24 11:37
Lab Results
WBC 6.1 10^3/uL (4.8-10.8) 09/17/24 05:52
RBC 3.32 10^6/uL (4.20-5.40) L 09/17/24 05:52
Hgb 11.1 g/dL (12.0-16.0) L 09/17/24 05:52
Hct 31.2 % (37.0-47.0) L 09/17/24 05:52
Plt Count 344 10^3/uL (130-400) 09/17/24 05:52
eGFR 34.70 09/17/24 05:52
Albumin 3.3 g/dl (3.5-5.0) L D 09/17/24 05:52
Physical Exam
Patient is awake alert oriented and in no distress. Mood and affect were pleasant, insight and judgment were good. Pupils are equal round and reactive to light, extraocular movements are intact, sclera were anicteric. Hearing was normal, ears and
nose are intact. Oropharynx was clear. Neck was supple with trachea midline and no thyromegaly. Heart was regular rate and rhythm without rubs. Lower extremities without edema. Lungs were clear to auscultation bilaterally and with normal
excursion. Abdomen was soft, nontender, with normal active bowel sounds, and no hepatosplenomegaly. Skin was without rash and with normal turgor.
Data Reviewed
-
Medical Tests (Nuc Med, Echo etc): Image Personally Visualized and interpreted (EKG 09/16/2024 by reading sinus rhythm first-degree AV block left axis deviation nonspecific interventricular conduction delay)
Labs: Labs Reviewed by me
Old Records: Reviewed
Assessment/Plan
-
Assessment
FROILAN
CKD 3B baseline 1.1
Hyperkalemia
Hyponatremia
Metabolic acidosis
Hypertension
Plan
IV fluids with bicarbonate
Lokelma course
Now off Bactrim
Holding olmesartan and spironolactone
Serial BMP
If creatinine does not improve check renal ultrasound
Check bladder scan
[2024-09-17 12:46] LABS: Glucose - Point of Care 133 mg/dl (70-99)
[2024-09-17] MEDS: SODIUM BICARBONATE 1150 MEQ IV (13:14)
[2024-09-17 15:58] VITALS: BP 112/58
[2024-09-17] MEDS: NEURONTIN 300 MG PO ×2 (16:02→22:07)
[2024-09-17 16:03] LABS: Blood Urea Nitrogen 36 mg/dl (7-17); Calcium 9.5 mg/dl (8.4-10.2); Carbon Dioxide 18 mmol/L (22-30); Chloride 103 mmol/L (98-107); Estimated Creatinine Clearance 35 ml/min; Glucose 151 mg/dl (70-99); Sodium 131 mmol/L (135-145); eGFR 40.73
--- NOTE | 2024-09-17 16:24 | CM ---
Alert awake oriented patient who lives with her Sony in a 1 story home with 1 steps to enter.She is independent in activates of daily living.She does drive .She uses no DME.
No VN in past . No SNF hx
Pharmacy [facility]
PCP Dr Ayala
PLAN Home with no needs
[2024-09-17 16:39] LABS: Glucose - Point of Care 137 mg/dl (70-99)
[2024-09-17] MEDS: NORVASC 10 MG PO (17:20)
[2024-09-17] MEDS: TOFRANIL 25 MG PO (17:22)
[2024-09-17 19:10] VITALS: BP 102/88
[2024-09-17 21:09] LABS: Glucose - Point of Care 106 mg/dl (70-99)
[2024-09-17] MEDS: MIRALAX 17 GRAMS PO (22:07)
[2024-09-17 23:34] VITALS: BP 115/52
[2024-09-18 03:21] VITALS: BP 104/62
[2024-09-18] MEDS: LOKELMA 10 GRAM PO ×2 (05:14→13:41)
[2024-09-18] MEDS: SODIUM BICARBONATE 1150 MEQ IV (05:15)
[2024-09-18 07:22] LABS: Glucose - Point of Care 110 mg/dl (70-99)
[2024-09-18 07:29] LABS: % Basophils 0.9 % (0-2); % Eosinophils 2.2 % (0-6); % Immature Granulocytes 0.4 % (0-0.5); % Lymphocytes 21.5 % (20.5-51.1); % Monocytes 12.4 % (1.7-9.3); % Neutrophils 62.6 % (42.2-75.2); Absolute Basophils 0.1 10^3/uL (0-0.2); Absolute Eosinophils 0.2 10^3/uL (0-0.7); Absolute Lymphocytes 1.5 10^3/uL (1.2-3.4); Absolute Monocytes 0.9 10^3/uL (0.1-0.6); Absolute Neutrophils 4.4 10^3/uL (1.4-6.5); Hematocrit 28.9 % (37.0-47.0); Hemoglobin 10.2 g/dL (12.0-16.0); Mean Corp Hgb Conc. 35.3 g/dL (33.0-37.0); Mean Corpuscular Hgb 33.2 pg (27.0-31.0); Mean Corpuscular Volume 94.1 fL (81.0-99.0); Mean Platelet Volume 9.4 fL (7.4-10.4); Nucleated Red Blood Cells % 0 %; Platelet Count 306 10^3/uL (130-400); Red Blood Cell Count 3.07 10^6/uL (4.20-5.40); Red Cell Dist. Width 11.9 % (11.5-14.5); White Blood Cell Count 6.9 10^3/uL (4.8-10.8)
[2024-09-18 07:30] VITALS: BP 106/53
[2024-09-18 08:00] VITALS: BMI 34.0
[2024-09-18 08:04] LABS: ALT (SGPT) 17 U/L (0-35); AST (SGOT) 19 U/L (14-36); Albumin 3.5 g/dl (3.5-5.0); Alkaline Phosphatase 55 U/L (38-126); Blood Urea Nitrogen 36 mg/dl (7-17); Calcium 9.2 mg/dl (8.4-10.2); Carbon Dioxide 28 mmol/L (22-30); Chloride 98 mmol/L (98-107); Estimated Creatinine Clearance 38 ml/min; Glucose 100 mg/dl (70-99); Potassium 4.4 mmol/L (3.5-5.1); Sodium 134 mmol/L (135-145); Total Bilirubin 0.4 mg/dl (0.2-1.3); Total Protein 5.6 g/dl (6.3-8.2); eGFR 44.51
[2024-09-18] MEDS: NOVOLOG FLEXPEN-LOW RESISTANCE SC (08:06)
[2024-09-18] MEDS: ASPIR LOW (ENTERIC COATED) 81 MG PO (08:07)
[2024-09-18] MEDS: APRESOLINE PO (08:07)
[2024-09-18] MEDS: HEPARIN 5000 UNITS SC (08:08)
[2024-09-18] MEDS: PROTONIX 40 MG PO (08:08)
[2024-09-18] MEDS: NEURONTIN 200 MG PO (08:08)
[2024-09-18] MEDS: FEOSOL 325 MG PO (08:08)
[2024-09-18] MEDS: VISBIOME 1 CAP PO (08:09)
[2024-09-18] MEDS: TENORMIN PO (08:09)
[2024-09-18] MEDS: VITAMIN D3 (cholecalciferol) 50 MCG PO (08:09)
[2024-09-18 11:09] VITALS: BP 121/52
[2024-09-18 11:46] LABS: Glucose - Point of Care 223 mg/dl (70-99)
--- NOTE | 2024-09-18 12:54 | W.PN.HOSP.TC ---
Today's Communication/Plan
-
follow up further renal recs
approaching DC
Assessment / Plan
Assessment / Plan
Assessment:
FROILAN with acute hyperkalemia (life threatening)
History of CKD stage 3a
- s/p temporization in ER - dextrose/insulin
- s/p Lokelma
- K normal today
- hold ARB/Aldactone for now; BP stable
- low K diet
- appreciate renal consult
- creatinine improving, not at baseline
Acute hyponatremia
- IVF (NSS) with improvement
Essential HTN
- continue CCB/BB/Hydralazine - titrate as needed for normotension goal
- hold ARB/Aldactone
HLD
- on Repatha injections
CAD s/p stent
- continue BB/ASA
NIDDM
- hold Metformin
- SSI
- A1c is 6.1%
DVT ppx: SC heparin
Code: Full
Anticipated Discharge: Within 24 hours
Subjective/Interval History
-
Date of Service: September 18, 2024
feeling well
denies shortness of breath or swelling
Objective Data
-
Labs:
Laboratory Results
09/18/24
06:25
WBC 6.9
Hgb 10.2 L
Hct 28.9 L
Plt Count 306
Sodium 134 L
Potassium 4.4
Chloride 98
Carbon Dioxide 28
BUN 36 H
Creatinine 1.3 H
Glucose 100 H
Calcium 9.2
Total Bilirubin 0.4
AST 19
ALT 17
Alkaline Phosphatase 55
Vital Signs:
Vital Signs
Temp Pulse Resp BP Pulse Ox
98.4 F 73 18 121/52 96
09/18/24 11:09 09/18/24 11:09 09/18/24 11:09 09/18/24 11:09 09/18/24 11:09
I&O
09/17/24 09/18/24 09/19/24
06:59 06:59 06:59
Intake Total 2119
Balance 2119
Review of Systems
-
History Source: Patient
All other systems: Reviewed and negative
Physical Exam
-
General: No Apparent Distress
HEENT: Normocephalic and Atraumatic
Respiratory: Negative Wheezes
Cardiac: Regular Rhythm and S1/S2
GI: Soft and Nontender
Genito-urinary: No Costovertebral Tender
Musculoskeletal: No Edema
Neuro: AO x 3
Psych: Calm
Data Reviewed
-
Diagnostic Radiology: Report Reviewed by me
Labs: Labs Reviewed by me
[2024-09-18] MEDS: NOVOLOG FLEXPEN-LOW RESISTANCE 2 UNITS SC (13:37)
--- NOTE | 2024-09-18 14:23 | W.PN.NEPH.PH ---
Today's Communication / Plan
-
Discharge off Aldactone and olmesartan
Assessment/Plan
-
Assessment
FROILAN
CKD 3B baseline 1.1
Hyperkalemia
Hyponatremia
Metabolic acidosis
Hypertension
Plan
Stable for discharge as creatinine now down to 1.3 and potassium normalized at 4.4
Would hold Aldactone at discharge and told patient she can restart olmesartan as outpatient once her systolic blood pressure goes above 130
Now off Bactrim
Holding olmesartan and spironolactone
Stable for discharge
-
-
Date of Service: September 18, 2024
CC / HPI / ROS
-
Chief Complaint:
FROILAN
Hyperkalemia
History of Present Illness:
Potassium down to 4 point
Creatinine improved to 1.3
Hemodynamically stable off Aldactone and olmesartan
Review of Systems:
Nonoliguric
No chest pain or shortness of breath
Labs
-
Labs:
WBC 6.9 10^3/uL (4.8-10.8) 09/18/24 06:25
RBC 3.07 10^6/uL (4.20-5.40) L 09/18/24 06:25
Hgb 10.2 g/dL (12.0-16.0) L 09/18/24 06:25
Hct 28.9 % (37.0-47.0) L 09/18/24 06:25
Plt Count 306 10^3/uL (130-400) 09/18/24 06:25
Sodium 134 mmol/L (135-145) L 09/18/24 06:25
Potassium 4.4 mmol/L (3.5-5.1) 09/18/24 06:25
Chloride 98 mmol/L (98-107) 09/18/24 06:25
Carbon Dioxide 28 mmol/L (22-30) 09/18/24 06:25
BUN 36 mg/dl (7-17) H 09/18/24 06:25
Creatinine 1.3 mg/dL (0.6-1.0) H 09/18/24 06:25
eGFR 44.51 09/18/24 06:25
Glucose 100 mg/dl (70-99) H 09/18/24 06:25
Calcium 9.2 mg/dl (8.4-10.2) 09/18/24 06:25
Albumin 3.5 g/dl (3.5-5.0) 09/18/24 06:25
Physical Exam
-
Vital Signs:
Vital Signs
Temp Pulse Resp BP Pulse Ox
98.4 F 73 18 121/52 96
09/18/24 11:09 09/18/24 11:09 09/18/24 11:09 09/18/24 11:09 09/18/24 11:09
Cardiovascular:: Regular rate and rhythm
Respiratory:: Bilateral: CTA
Lung Excursion:: Normal
Abdomen:: Nontender and Soft
Bowel Sounds:: Normal
Extremity Edema:: None: Bilateral:
Proctor Catheter: No
--- NOTE | 2024-09-18 14:24 | W.DS.TRANS ---
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
-
Discharge Instructions:
Discharge Diagnosis/Procedures hyperkalemia, acute kidney injury
Diet Regular
Activity As tolerated
Blood Work BMP should be ordered one week after resuming
Losartan by your PCP
Instructions:
Stand-Alone Forms:
Changes to Home Medications: Yes
Discharge Medications:
DC Medications w/original date entered in [facility]Path
cholecalciferol (vitamin D3) 50 mcg (2,000 unit) capsule (Vitamin D3) 2,000 unit PO DAILY Supplement 04/22/18
amlodipine 10 mg tablet 10 mg PO QPM ##1 05/19/18
atenolol 50 mg tablet 75 mg PO BID Blood pressure 05/08/20
evolocumab 140 mg/mL subcutaneous pen injector (Repatha SureClick) 140 mg SQ Q2W High cholesterol 08/02/21
ferrous sulfate 325 mg (65 mg iron) tablet (FeroSul) 325 mg PO DAILY Supplement 08/02/21
metformin 500 mg tablet 250 mg PO DAILY Diabetes 08/02/21
omega-3s 800 mg-dha 186.67 mg-epa 560 mg-fish-vit D3 8.33 mcg capsule (De3 Dry Eye [place] Benefits) 1 ea PO DAILY Supplement 08/02/21
hydralazine 25 mg tablet 25 mg PO TID Blood pressure 09/19/22
olmesartan 40 mg tablet 40 mg PO DAILY 09/19/22
hydrocortisone 1 %-iodoquinol 1 % topical cream 1 applic topical DAILYPRN PRN skin irritation 05/24/24
Lactobac no.2-Bifidobac no.1-S. thermo 112.5 billion cell capsule (Visbiome) 1 cap PO DAILY 09/16/24
acetaminophen 650 mg tablet,extended release 650 mg PO DAILYPRN PRN mild pain 09/16/24
aspirin 81 mg tablet 81 mg PO DAILY 09/16/24
gabapentin 100 mg capsule 200 mg PO DAILY@0800 09/16/24
gabapentin 300 mg capsule 300 mg PO BID@1600,2100 sleep/pain 09/16/24
hydrocortisone 2.5 % topical cream with perineal applicator 1 applic [place] DAILYPRN PRN hemorrhoids 09/16/24
imipramine HCl 25 mg tablet 25 mg PO QPM 09/16/24
omeprazole 20 mg capsule,delayed release 20 mg PO BID 09/16/24
polyethylene glycol 3350 17 gram oral powder packet 17 g PO HS 09/16/24
silver sulfadiazine 1 % topical cream 1 applic topical DAILYPRN PRN skin irritation 09/16/24
tramadol 50 mg tablet 50 mg PO TID PRN moderate pain 09/16/24
famotidine 40 mg tablet 20 mg (1/2 x 40 mg) PO HS #0 tabs 09/18/24
Home Medication Changes
Hold Olmesartan. You may resume this medication if your systolic blood pressure readings at home are over 130
Stop Spironolactone
Based on your renal function, Pepcid dosing is decreased to 20mg in evenings
Pending Results: No
[2024-09-18 15:17] VITALS: BP 113/54
[2024-09-18 15:20] VITALS: BP 113/54
--- NOTE | 2024-09-18 15:43 | W.DCSUMMARY ---
Discharge Summary
Discharge Data
Date of Admission: 09/16/24
Date of Discharge: 09/18/24
-
Pending Results: No
Hospital Course
Discharging Physician : Dr. Daniela Anthony
Disposition : Home
Primary care physician : Dr. Arlene Cabello
Principal Discharge diagnosis : Hyperkalemia, acute kidney injury
Hospital Course :
Ms. Lesly Baca is a 69 yo woman with hx HTN, CKD, CAD s/p stent, HLD, NIDDM presents to ER for abnormal labs. 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 Patient was recently prescribed a Bactrim course for UTI that had
been discontinued (she completed 5 days of therapy).
Triage vitals stable. Labs with potassium 6.5, creatinine 1.8, Na 124. She received emergent treatment with Insulin/Dextrose, IVF in the ER. Patient was admitted to medicine with Nephrology consulting. 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
(these were put on hold as outpatient when initial labs showed mildly elevated K). She received IVF with sodium bicarb and Lokelma. Over next 48 hours her potassium normalized. Her sodium improved to 134 on day of discharge and renal function
returned to baseline. Her BP has remained low/normal off of her ARB and Spironolactone. She is asked to continue holding these medications at discharge and resume Olmesartan when SBP readings over 130. After resuming Olmesartan a BMP should be
rechecked by her outpatient providers.
Patient felt ready to go home today. Time spent on discharge was 35 minutes.
Important imaging findings :
Procedure findings :
Discharge Plan
-
Patient Disposition: Home (Routine Discharge)
Discharge Diagnosis/Procedures: hyperkalemia, acute kidney injury
Diet: Regular
Activity: As tolerated
Blood Work: BMP should be ordered one week after resuming Losartan by your PCP
Activity Restrictions/Additional Instructions:
Please make an appointment with your PCP prior to your trip.
Referrals:
Arlene Cabello, DO [Family Provider] - in less than 1 week
Additional Discharge Medication Instructions: Hold Olmesartan. You may resume this medication if your systolic blood pressure readings at home are over 130
Stop Spironolactone
Based on your renal function, Pepcid dosing is decreased to 20mg in evenings
Prescriptions:
Continued
cholecalciferol (vitamin D3) [Vitamin D3] 2,000 UNIT capsule
2,000 unit PO DAILY
amlodipine 10 MG tablet
10 mg PO QPM Qty: 1 0RF
atenolol 50 MG tablet
75 mg PO BID
metformin 500 MG tablet
250 mg PO DAILY
ferrous sulfate [FeroSul] 325 MG tablet
325 mg PO DAILY
Repatha SureClick 140 MG/ML pen injector
140 mg SQ Q2W
De3 Dry Eye [place] Benefits 1 EACH capsule
1 ea PO DAILY
hydralazine 25 mg tablet
25 mg PO TID
hydrocortisone-iodoquinol 1-1 % Cream
1 applic TOPICAL DAILYPRN PRN (Reason: skin irritation)
silver sulfadiazine 1 % Cream
1 applic TOPICAL DAILYPRN PRN (Reason: skin irritation)
polyethylene glycol 3350 17 gram Powder In Packet
17 g PO HS
tramadol 50 mg Tablet
50 mg PO TID PRN (Reason: moderate pain)
acetaminophen 650 mg Tablet Extended Release
650 mg PO DAILYPRN PRN (Reason: mild pain)
hydrocortisone 2.5 % cream with perineal applicator
1 applic [place] DAILYPRN PRN (Reason: hemorrhoids)
omeprazole 20 mg Capsule,Delayed Release(Dr/Ec)
20 mg PO BID
aspirin 81 mg Tablet
81 mg PO DAILY
gabapentin 100 mg Capsule
200 mg PO DAILY@0800
imipramine HCl 25 mg Tablet
25 mg PO QPM
Visbiome 112.5 billion cell Capsule
1 cap PO DAILY
gabapentin 300 mg capsule
300 mg PO BID@1600,2100
Changed
famotidine 40 mg Tablet
20 mg PO HS Qty: 0 0RF
Held
olmesartan 40 mg tablet
40 mg PO DAILY
Hold Instructions: Resume on 09/25/24.
Patient Comments:
patient states that doctor told her to stop taking this yesterday 09/15/24
Discontinued
spironolactone 25 mg Tablet
25 mg PO DAILY
Patient Comments:
patient states that doctor told her to stop taking this yesterday 09/15/24
Discharge Orders:
Discharge Patient (As Directed); Ordered 09/18/24
Ordered By: Daniela Anthony
Discharge Date and Time
Print Language: [id number]
== END 2024-09-18 17:12 | disposition home or self-care (01) | DRG 683 ==
LOC: 4 EAST ACU 16:43
PROVIDERS: Clinical Nurse Specialist Family Health; Emergency Medicine; ADMITTING PHYSICIAN Internal Medicine; ATTENDING PHYSICIAN Student in an Organized Health Care Education/Training Program; CONSULT PHYSICIAN Specialist; EMERGENCY PHYSICIAN Emergency Medicine; FAMILY PHYSICIAN Family Medicine
DX: N17.9 Acute kidney failure, unspecified (principal); E87.1 Hypo-osmolality and hyponatremia; E87.20 Acidosis, unspecified; E87.5 Hyperkalemia; I12.9 Hypertensive chronic kidney disease with stage 1 through stage 4 chronic kidney disease, or unspecified chronic kidney disease; N18.32 Chronic kidney disease, stage 3b; I25.10 Atherosclerotic heart disease of native coronary artery without angina pectoris; E78.00 Pure hypercholesterolemia, unspecified; K21.9 Gastro-esophageal reflux disease without esophagitis; E11.22 Type 2 diabetes mellitus with diabetic chronic kidney disease; Z79.899 Other long term (current) drug therapy; Z79.84 Long term (current) use of oral hypoglycemic drugs; Z79.82 Long term (current) use of aspirin; Z88.7 Allergy status to serum and vaccine; Z91.040 Latex allergy status; Z95.5 Presence of coronary angioplasty implant and graft; E11.40 Type 2 diabetes mellitus with diabetic neuropathy, unspecified; F32.A Depression, unspecified; E55.9 Vitamin D deficiency, unspecified; E66.811 Obesity, class 1; Z68.33 Body mass index [BMI] 33.0-33.9, adult
CPT/HCPCS: 80048; 80053; 82962; 83036; 84132; 85025; 93005; 96374; 96375; 99291

== ENCOUNTER 2024-10-13 14:14 | Inpatient (IN) | payer OTHER, SELFPAY ==
[2024-10-13] VITALS (7 sets, daily range): BP systolic 111–139; BP diastolic 43–64; BMI 35.0; BMI 33.9
--- NOTE | 2024-10-13 09:33 | ED.GENMED ---
History of Present Illness
General
Chief Complaint: Rectal Bleeding
Source: patient and spouse
Time Seen by Provider: 10/13/24 09:15
History of Present Illness
History of Present Illness:
69-year-old female with past medical history of CAD, hypertension, hyperlipidemia, CKD, [id number] diabetes presenting to the ER for evaluation after she noticed blood in her stool late yesterday evening into early this morning stating
that she had been constipated for about a day so took some MiraLAX and prune juice, was at her daughter's house last night when she felt a sudden urge to go to the bathroom and proceeded to have a large bowel movement and vomiting. Vomiting since
subsided but patient states she continue go to the bathroom and at first noticed just the stool, then started noticing blood intermixed and this morning just some blood. She states she is having some lower abdominal cramping but no fevers. She
does note a history of constipation in the past and will often need to use MiraLAX but states she has never had this before. She is up-to-date on colonoscopy and as far she knows she has never had any abnormalities on her colonoscopy. Patient
states no diarrhea associated with this. She does note recent travel to [facility] and [place] on a river cruise, no sick contacts or recent antibiotics. No previous surgeries on her abdomen.
Past History
Past History
ED Past Medical History: CAD, HTN, Hypercholesterolemia, NIDDM and Renal failure
ED Past Surgical History: Cardiac, Orthopedic and Urological
Social History
Tobacco: Non-smoker
Alcohol: Occasional
Drug: None
Personal:
Living: with family
Employment: Retired
Family History
Family History: CAD
Review of Systems
Review of Systems
All Other Systems: ROS reviewed and negative except as documented in HPI and ROS
Phy Exam
Physical Exam
Physical Exam:
GENERAL: Alert , in no apparent distress
EYE: clear conjunctiva b/l
HEAD: NCAT
ENT: o/p clr, mmm.
CARDIAC: Regular rate and rhythm .
LUNGS: Clear breath sounds bilaterally, no acute respiratory distress, no wheezes/rales/rhonchi
ABDOMEN: Soft, without focal tenderness, no r/g, no cvat
RECTAL EXAM: dark red blood intermixed with light red blood, no stool, heme pos
NEUROLOGICAL: Alert and oriented
SKIN: Warm and dry, skin intact.
MUSCULOSKELETAL: No edema, well perfused.
PSYCH: Normal and appropriate interaction.
Scores
Heart Failure Risk
Heart Failure Risk Score: Not Applicable
Heart Score for Chest Pain Patients
STEMI patient?: Not applicable
Withdrawal Assessment of Alcohol
Withdrawal Assessment Completed?: Not applicable
Course
Orders/Labs/Results
Orders:
Orders
10/13/24 09:30
CT Abd/pelvis W Iv Cont Urgent
Comment:
Reason For Exam: lower abd cramping, hematochezia
10/13/24 09:37
Type+Screen Urgent
Basic Metabolic Panel Urgent
Complete Blood Count/With Diff Urgent
PTT Urgent
Prothrombin Time Urgent
10/13/24 10:42
Lactic Acid Q4H
Comment: CANCEL 2nd LACTIC ACID IF 1st LACTIC ACID IS LESS THAN 2
10/13/24 13:35
Admit/Transfer Patient As Directed
Co-Sign Provider:
Level of Care: Inpatient admission
Assign to:: Medical/Surgical
Physician / Group: Rod
Diagnosis: acute ischemic colitis
Reason for Hospitalization: acute ischemic colitis
Expected length of stay greater than two midnights?: Yes
ELOS- Estimated Length of Stay in days: 3
I certify the patient meets the requirements for IP care: Yes
10/13/24 13:36
PRN Pain Medication Management As Directed
May give lesser potent ordered pain med per pt: Yes
preference::
Protocol:: Medication orders for pain may be administered in a
manner that supports deferring to patient preference
when the pt is:
- Requesting an ordered lesser potent pain medication.
Least to most potent pain medications are defined
as: acetaminophen < NSAID < tramadol < opioids
(morphine, oxycodone, hydromorphone).
- Requesting a lesser dose of the same medication IF
ORDERED.
- Requesting a less intrusive route of administration
if both routes are prescribed by the provider (PO <
IV).
10/13/24 13:39
Code Status As Directed
Resuscitation Status: Full Code
Abnormal Lab Results
10/13/24
09:37
WBC 14.8 H 10^3/uL
(4.8-10.8)
RBC 3.75 L 10^6/uL
(4.20-5.40)
MCV 100.0 H fL
(81.0-99.0)
MCH 33.9 H pg
(27.0-31.0)
Absolute Neuts (auto) 12.7 H 10^3/uL
(1.4-6.5)
Absolute Lymphs (auto) 0.9 L 10^3/uL
(1.2-3.4)
Absolute Monos (auto) 1.1 H 10^3/uL
(0.1-0.6)
Neutrophils % 86.0 H %
(42.2-75.2)
Lymphocytes % 6.1 L %
(20.5-51.1)
Chloride 110 H mmol/L
(98-107)
BUN 25 H mg/dl
(7-17)
Glucose 129 H mg/dl
(70-99)
10/13/24 09:37
10/13/24 09:37
Vital Signs
Initial and Last Documented VS:
Initial Vital Signs
Temp Pulse Resp BP Pulse Ox
98.5 F 66 22 139/64 98
10/13/24 09:02 10/13/24 09:02 10/13/24 09:02 10/13/24 09:02 10/13/24 09:02
Last Documented Vital Signs
Temp Pulse Resp BP Pulse Ox
98.5 F 59 15 111/43 95
10/13/24 09:02 10/13/24 12:45 10/13/24 12:45 10/13/24 10:26 10/13/24 12:45
MDM/Problems Addressed
Differential Diagnosis Includes:
Hemorrhoidal bleeding, diverticulitis, colitis, IBD, anemia, infectious diarrhea
MDM/Problems Addressed:
69-year-old female presenting to the emergency department for evaluation after being constipated for couple of days, took MiraLAX and prune juice causing multiple bowel movements and vomiting. Patient now with blood intermixed with her stool and
this morning noticed just blood. Cramping associated. Patient hemodynamically stable in no acute distress. Rectal exam did reveal dark blood intermixed with light blood. I do suspect hemorrhoidal bleeding is a strong diagnostic possibility.
Given her age and past medical history we will still obtain CT scan to further evaluate. Disposition pending
Chronic conditions affecting care: CAD and Kidney disease
*Radiology
Radiology exam reviewed: radiology read reviewed
*Pulse Oximetry
Patient hypoxic: no
*Critical Care Note
Total Time (30-74mins, 75-104mins- exclusive of procedures): Not Applicable
Data Reviewed
Review of Other/Old Records Reveals: Labs, Records and Discharge Summary
Patient Management
Discussion with other providers: Hospitalist and Distributed Generation Project Manager
Escalation/DeEscalation of care consider admission/obs:
Patient CT scan shows acute ischemic colitis of the distal transverse colon, hepatic flexure of the colon and descending colon. Diverticulosis of the descending and sigmoid colon. Other chronic findings noted but not likely to be related to
patient's presenting symptoms. Given her bloody stools, leukocytosis and generalized discomfort will plan for admission. GI team notified. Hospitalist team accepts. Antibiotics deferred to hospitalist team as it was thought to be less likely
infectious colitis
ED Attending Note
-
Portions of this chart may have been created with voice recognition software.� Occasional wrong word or��sound alike� substitutions may have occurred due to the inherent limitations of voice recognition software.
Discharge Plan
Departure
Patient Disposition: Admit
Date of Disposition: 10/13/24
Time of Disposition: 12:49
Presentation/result/management discussed w/ accepting MD/DO: Hospitalist
Discharge Problem:
Acute ischemic colitis
Interventions
Interventions:
*Risk Screen - Suicide Last Done: 10/13/24 09:02
*General Assessment Last Done: 10/13/24 09:02
*Neglect/Abuse Screening Last Done: 10/13/24 09:02
OX-Rdotmk-Pzaqcfpspn Assessment Last Done: 10/13/24 09:30
ED- Cardiac Assessment Last Done: 10/13/24 09:30
ED- Pulmonary Assessment Last Done: 10/13/24 09:30
[2024-10-13 09:46] LABS: % Basophils 0.3 % (0-2); % Eosinophils 0.1 % (0-6); % Immature Granulocytes 0.3 % (0-0.5); % Lymphocytes 6.1 % (20.5-51.1); % Monocytes 7.2 % (1.7-9.3); Absolute Basophils 0.1 10^3/uL (0-0.2); Absolute Lymphocytes 0.9 10^3/uL (1.2-3.4); Absolute Monocytes 1.1 10^3/uL (0.1-0.6); Absolute Neutrophils 12.7 10^3/uL (1.4-6.5); Hematocrit 37.5 % (37.0-47.0); Hemoglobin 12.7 g/dL (12.0-16.0); Mean Corp Hgb Conc. 33.9 g/dL (33.0-37.0); Mean Corpuscular Hgb 33.9 pg (27.0-31.0); Mean Platelet Volume 9.4 fL (7.4-10.4); Nucleated Red Blood Cells % 0 %; Platelet Count 369 10^3/uL (130-400); Red Blood Cell Count 3.75 10^6/uL (4.20-5.40); Red Cell Dist. Width 14.3 % (11.5-14.5); White Blood Cell Count 14.8 10^3/uL (4.8-10.8)
[2024-10-13 09:57] LABS: INR 1.01; PT 13.6 Sec (11.4-14.6)
[2024-10-13 09:58] LABS: APTT 27.6 Sec (23.4-35.0)
[2024-10-13 10:11] LABS: Blood Urea Nitrogen 25 mg/dl (7-17); Calcium 9.6 mg/dl (8.4-10.2); Carbon Dioxide 23 mmol/L (22-30); Chloride 110 mmol/L (98-107); Estimated Creatinine Clearance 50 ml/min; Glucose 129 mg/dl (70-99); Sodium 139 mmol/L (135-145); eGFR > 60.00
[2024-10-13 10:59] LABS: Lactic Acid 1.1 mmol/L (0.7-2.0)
--- NOTE | 2024-10-13 12:55 | HPS.HSE ---
Addendum entered and electronically signed by Stephanie Velasco MD 10/13/24 18:36:
I personally performed a history and physical exam of the patient and discussed management with the resident. I reviewed the resident's note and agree with the documented findings and plan of care HPI/CC.
GENERAL: well developed, well nourished, female in no apparent distress
HEENT: NC/AT
HEART: regular rate and rhythm, +S1, +S2
LUNGS : clear to auscultation bilaterally
ABDOM: soft, tender left side without guarding or rebound, nondistended, + bowel sounds
EXT: no cyanosis, clubbing, or edema
NEUROLOGIC: grossly intact
abdominal pain with BRBPR--possible etiologies ischemic colitis (by CT scan) but pt afebrile, normal lactate, mildly tender--infectious possible--ADMIT--apprec GI--NPO/IVF, pain meds, antiemetics
Essential HTN- cont home amlodipine, atenolol, hydralazine
NIDDM- hold home rybelsus, metformin
HLD- hold home repatha
DVT proph-- SCDs
Code status-- FULL CODE
Original Note:
Family Physician
-
Family Physician: Arlene Cabello
Chief Complaint
-
bloody bowel movements
History of Present Illness
Pt is a 69yo F h CAD, HTN, HLD, NIDDM, CKD presenting to [facility] ED for bloody bowel movements. Reports stools with bright red blood. This started last night into early this morning. She was constipated, took miralax and prune juice. Had episode of
nonbloody vomiting last night. +lower abdominal cramping, -fevers, -chills, -CP. UTD colonoscopy. Recent travel to [facility] and [place] on a river cruise, returned 10/05. No sick contacts or recent abx. Heme (+).
Medical History
Past Medical History
Past Medical History: Reports CAD, HTN, Hypercholesterolemia, NIDDM and Renal Failure
Past Surgical History: Reports Cardiac, Orthopedic and Urological
Social History
Tobacco: Non-smoker
Alcohol: Occasional
Drug: None
Personal:
Living: With Family
Employment: Retired
Family History
Family History: CAD
Allergies / Home Medications
Allergies reflects when Allergies were last updated in [employer].
Home Medications with original date entered in [employer]
Allergy/Medication List:
Allergies
Allergy/AdvReac Type Severity Reaction Status Date / Time
Influenza Virus Vaccines Allergy Severe Guillane Verified 10/13/24 09:02
barre
sulfamethoxazole (From Allergy Severe high Verified 10/13/24 09:02
Bactrim) potassium
trimethoprim (From Bactrim) Allergy Severe high Verified 10/13/24 09:02
potassium
latex Allergy Intermediate Rash Verified 10/13/24 09:02
nitrofurantoin (From Allergy Intermediate Rash Verified 10/13/24 09:02
Macrobid)
Home Medications
cholecalciferol (vitamin D3) 50 mcg (2,000 unit) capsule (Vitamin D3) 2,000 unit PO DAILY Supplement 04/22/18
amlodipine 10 mg tablet 10 mg PO QPM ##1 05/19/18
atenolol 50 mg tablet 75 mg PO BID Blood pressure 05/08/20
evolocumab 140 mg/mL subcutaneous pen injector (Repatha SureClick) 140 mg SQ Q2W High cholesterol 08/02/21
ferrous sulfate 325 mg (65 mg iron) tablet (FeroSul) 325 mg PO DAILY Supplement 08/02/21
metformin 500 mg tablet 250 mg PO DAILY Diabetes 08/02/21
omega-3s 800 mg-dha 186.67 mg-epa 560 mg-fish-vit D3 8.33 mcg capsule (De3 Dry Eye [employer] Benefits) 1 ea PO DAILY Supplement 08/02/21
hydralazine 25 mg tablet 25 mg PO TID Blood pressure 09/19/22
Lactobac no.2-Bifidobac no.1-S. thermo 112.5 billion cell capsule (Visbiome) 1 cap PO DAILY 09/16/24
aspirin 81 mg tablet 81 mg PO DAILY 09/16/24
gabapentin 100 mg capsule 200 mg PO DAILY@0800 09/16/24
gabapentin 300 mg capsule 300 mg PO BID@1600,2100 sleep/pain 09/16/24
imipramine HCl 25 mg tablet 25 mg PO QPM 09/16/24
omeprazole 20 mg capsule,delayed release 20 mg PO BID 09/16/24
famotidine 40 mg tablet 20 mg (1/2 x 40 mg) PO HS #0 tabs 09/18/24
estradiol 0.01% (0.1 mg/gram) vaginal cream (Estrace) 1 appful vaginal MOFR 10/13/24
mupirocin 2 % topical ointment 1 applic topical BID left toe 10/13/24
semaglutide 3 mg tablet (Rybelsus) 3 mg PO DAILY 10/13/24
Review of Systems
-
History Source: Patient
A 12 point ROS was completed and negative except as noted: Yes
Constitutional: Reports No Symptoms
EENT: Reports No Symptoms
Respiratory: Reports No Symptoms
Cardiac: Reports No Symptoms
Abdomen/GI: Reports Vomiting, Constipated and Bloody Stools
: Reports No Symptoms
Musculoskeletal: Reports Edema
Skin: Reports No Symptoms
Neurological: Reports No Symptoms
Endocrine: Reports No Symptoms
Hematologic/Lymphatic: Reports Bleeding
Psych: Reports No Symptoms
Physical Exam
Vital Signs
Vital Signs
Temp Pulse Resp BP Pulse Ox
98.5 F 59 15 111/43 95
10/13/24 09:02 10/13/24 12:45 10/13/24 12:45 10/13/24 10:26 10/13/24 12:45
Physical Exam
General: Well Developed, Well Nourished and Obese
HEENT: NormoCephalic, Anicteric and Atraumatic
Respiratory: Clear and Non Labored Respirations
Cardiac: S1/S2, Regular Rhythm and Bradycardia
GI: Soft, Non Tender, Non Distended, No Hernias and Other (hypoactive BS)
Genito-urinary: Deferred by me
Musculoskeletal: No Clubbing, No Cyanosis, Edema, Left Lower Extremity and Edema, Right Lower Extremity
Skin: Warm and Dry
Neuro: Awake, Alert and Oriented
Psych: Calm
Laboratory Results
-
10/13/24 09:37
10/13/24 09:37
Laboratory Results
PT 13.6 Sec (11.4-14.6) 10/13/24 09:37
INR 1.01 10/13/24 09:37
APTT 27.6 Sec (23.4-35.0) 10/13/24 09:37
Lactic Acid Cancelled 10/13/24 14:45
Total Bilirubin Cancelled 10/13/24 09:37
AST Cancelled 10/13/24 09:37
ALT Cancelled 10/13/24 09:37
Alkaline Phosphatase Cancelled 10/13/24 09:37
Impression/Plan
-
IMPRESSION:
69yo F h CAD s/p stent, HTN, HLD, NIDDM, CKD presenting to [facility] ED for bloody bowel movements. This started last night into early this morning. She was constipated, took miralax and prune juice. Had episode of nonbloody vomiting last night. Heme
(+), CT abd/pelvis c/w acute ischemic colitis.
PLAN:
Possible acute ischemic colitis vs infectious colitis vs diverticulitis
- could be secondary to microthrombi
- confirmed by abd/pelvis CT
- lactate wnl
- NPO, IVF
- antiemetics
- appreciate GI input
HTN
- cont home amlodipine, atenolol, hydralazine
NIDDM
- hold home rybelsus, metformin
HLD
- hold home repatha
Diet: NPO
DVT ppx: SCDs
Code status: FULL CODE
--- NOTE | 2024-10-13 15:28 | CON.GI ---
Addendum entered and electronically signed by Charlotte Malone MD 10/14/24 06:01:
I saw and examined the patient.
The FACILITY ENGINEER or PA's note was reviewed and I agree with the note.
Comment:
Pt with a hx of CAD, HTN, NIDDM, chronic constipation recently back from [place] cruise with constipation, rectal bleeding. In ER had an elevated wbc and CT c/w ischemic colitis.
abd: soft, mildly tender llq
impression:
ischemic colitis
rectal bleeding
constipation
plan:
IVF
monitor hgb
if stool send for stool studies
up to date with colorectal cancer screening
Pt seen yesterday 10/13/24
Original Note:
Consultation
-
Date/Time Consultation Requested: 10/13/24 1330
Date/Time Consultation Performed: 10/13/24 1530
Requesting Provider: Evan Morales PA-C
Performing Provider: Dr. Malone / Nanette Salcido PA-C
Reason for Consultation: ischemic colitis
Medical History
Chief Complaint / HPI
Chief Complaint: rectal bleeding
History of Present Illness:
This is a 69 year old female with a past medical history of CAD, HTN, hyperlipidemia, NIDDM (recently started on Rybelsus), CKD, chronic constipation and reflux who complained of constipation and took Miralax and prune juice yesterday evening, then
developed sudden onset of abdominal pain, nausea, and vomiting. No diarrhea. This morning, she had 2 episoides of bright red blood with bowel movements, still without diarrhea. No fever. She did feel some chills. Patient states the abdominal pain
has now resolved. Labs in the ER did show leukocytosis with WBC 14.8. Hemoglobin stable at 12.7. CT abdomen/pelvis showing acute ischemic colitis, with mild to moderate circumferential wall thickening of the distal transverse colon, splenic flexure
and descending colon. Patient had a recent colonoscopy 01/2024, which was normal with the exception of internal hemorrhoids and diverticulosis. Of note, she did recently travel to [place] (on a river cruise), returned 10/05/24, but felt fine during the
whole trip. No sick contacts. No recent antibiotics.
Past Medical History
Past Medical History: CAD, HTN, Hypercholesterolemia and NIDDM (CKD, chronic constipation, GERD)
Past Surgical History: Cardiac, Orthopedic and Urological
Social History
Tobacco: Non-Smoker
Alcohol: Occasional
Drug: None
Personal:
Living: With Family
Employment: Retired
Family History
Family History: Reviewed & Not Pertinent (No family history of any GI malignancies)
Allergies / Home Medications
Allergy/AdvReac Type Severity Reaction Status Date / Time
Influenza Virus Vaccines Allergy Severe Guillane Verified 10/13/24 09:02
barre
sulfamethoxazole (From Allergy Severe high Verified 10/13/24 09:02
Bactrim) potassium
trimethoprim (From Bactrim) Allergy Severe high Verified 10/13/24 09:02
potassium
latex Allergy Intermediate Rash Verified 10/13/24 09:02
nitrofurantoin (From Allergy Intermediate Rash Verified 10/13/24 09:02
Macrobid)
�Medication �Instructions �Recorded
cholecalciferol (vitamin D3) 50 2,000 unit PO DAILY Supplement 04/22/18
mcg (2,000 unit) capsule (Vitamin
D3)
amlodipine 10 mg tablet 10 mg PO QPM ##1 05/19/18
atenolol 50 mg tablet 75 mg PO BID Blood pressure 05/08/20
evolocumab 140 mg/mL subcutaneous 140 mg SQ Q2W High cholesterol 08/02/21
pen injector (Repatha SureClick)
ferrous sulfate 325 mg (65 mg 325 mg PO DAILY Supplement 08/02/21
iron) tablet (FeroSul)
metformin 500 mg tablet 250 mg PO DAILY Diabetes 08/02/21
omega-3s 800 mg-dha 186.67 mg-epa 1 ea PO DAILY Supplement 08/02/21
560 mg-fish-vit D3 8.33 mcg
capsule (De3 Dry Eye [employer]
Benefits)
hydralazine 25 mg tablet 25 mg PO TID Blood pressure 09/19/22
Lactobac no.2-Bifidobac no.1-S. 1 cap PO DAILY 09/16/24
thermo 112.5 billion cell capsule
(Visbiome)
aspirin 81 mg tablet 81 mg PO DAILY 09/16/24
gabapentin 100 mg capsule 200 mg PO DAILY@0800 09/16/24
gabapentin 300 mg capsule 300 mg PO BID@1600,2100 sleep/pain 09/16/24
imipramine HCl 25 mg tablet 25 mg PO QPM 09/16/24
omeprazole 20 mg capsule,delayed 20 mg PO BID 09/16/24
release
famotidine 40 mg tablet 20 mg (1/2 x 40 mg) PO HS #0 tabs 09/18/24
estradiol 0.01% (0.1 mg/gram) 1 appful vaginal MOFR 10/13/24
vaginal cream (Estrace)
mupirocin 2 % topical ointment 1 applic topical BID left toe 10/13/24
semaglutide 3 mg tablet (Rybelsus) 3 mg PO DAILY 10/13/24
Review of Systems
-
History Source: Patient
All other systems: A 12 pt ROS was Negative except as stated above in HPI
Vital Signs
Temp Pulse Resp BP Pulse Ox
98.5 F 58 13 118/53 95
10/13/24 09:02 10/13/24 15:00 10/13/24 15:00 10/13/24 15:00 10/13/24 15:00
Physical Exam
Exam
General: Well Developed, Well Nourished and No Apparent Distress
Respiratory: Clear
Cardiac: Regular Rhythm
GI: Soft, Non Tender, Non Distended, Normal Bowel Sounds and Other (ER rectal exam showed dark red blood intermixed with light red blood, no stool, heme pos)
Skin: Warm and Dry
Neuro: AO x 3
Psych: Calm
Results
WBC 14.8 10^3/uL (4.8-10.8) H 10/13/24 09:37
Hgb 12.7 g/dL (12.0-16.0) 10/13/24 09:37
Hct 37.5 % (37.0-47.0) 10/13/24 09:37
MCV 100.0 fL (81.0-99.0) H 10/13/24 09:37
Plt Count 369 10^3/uL (130-400) 10/13/24 09:37
Absolute Neuts (auto) 12.7 10^3/uL (1.4-6.5) H 10/13/24 09:37
PT 13.6 Sec (11.4-14.6) 10/13/24 09:37
INR 1.01 10/13/24 09:37
APTT 27.6 Sec (23.4-35.0) 10/13/24 09:37
Sodium 139 mmol/L (135-145) 10/13/24 09:37
Potassium mmol/L (3.5-5.1) 10/13/24 09:37
Chloride 110 mmol/L (98-107) H 10/13/24 09:37
Carbon Dioxide 23 mmol/L (22-30) 10/13/24 09:37
BUN 25 mg/dl (7-17) H 10/13/24 09:37
Creatinine 1.0 mg/dL (0.6-1.0) 10/13/24 09:37
Calcium 9.6 mg/dl (8.4-10.2) 10/13/24 09:37
Total Bilirubin Cancelled 10/13/24 09:37
AST Cancelled 10/13/24 09:37
ALT Cancelled 10/13/24 09:37
Alkaline Phosphatase Cancelled 10/13/24 09:37
Diagnostic Image Results:
10/13/24 CT Abdomen/Pelvis:
1. ACUTE ISCHEMIC COLITIS in the distal transverse colon, hepatic flexure of the colon, and descending colon with mild to moderate circumferential wall thickening and submucosal edema. An acute infectious colitis or inflammatory bowel disease are
less likely diagnostic possibilities.
2. Moderate diverticulosis in the descending and sigmoid colon.
3. Moderate diffuse hepatic steatosis.
4. Severe calcific atherosclerotic plaque in the abdominal aorta and proximal superior mesenteric artery.
5. Mild distention of the urinary bladder.
6. Severe multilevel discogenic degenerative disease and facet joint arthrosis in the lumbar spine.
Prior GI Procedures:
EGD: years ago, per pt
Colonoscopy: 01/2024 (Dr. Quintero)
Assessment / Plan
-
69 year old female with a history of CAD, HTN, hyperlipidemia, NIDDM (recently started on Rybelsus), CKD, chronic constipation and reflux presented to the ER after 2 episodes of bloody bowel movements and abdominal pain. Workup in the ER showing
leukocytosis (WBC 14.8), stable hemoglobin (12.7) and CT showing acute ischemic colitis. She is currently comfortable with no further bleeding, and no fever/chills.
IMPRESSION / PLAN:
Acute Ischemic Colitis -- vs possible infectious colitis (less likely)
- continue IV fluids
- patient started on IV antibiotics per medical team
- NPO
- continue supportive care; monitor clinical status
- UTD with recent colonoscopy 01/2024
Constipation, chronic
- longstanding issue, likely recently worsened by semaglutide
- previously well-managed with Miralax
Other medical issues managed as per hospitalist.
-
-
Thank you for consultation and allowing me to participate in the patient's care. Please call the sales compensation analyst GI physician during the after hours with any questions or concerns.
[2024-10-13] MEDS: ZOSYN 50 IV ×2 (16:31→22:08)
[2024-10-13] MEDS: NSS 1000 IV (16:31)
[2024-10-13] MEDS: TOFRANIL 25 MG PO (18:07)
[2024-10-13] MEDS: NEURONTIN 300 MG PO ×2 (18:08→20:28)
[2024-10-13] MEDS: APRESOLINE 25 MG PO ×2 (18:08→22:54)
[2024-10-13] MEDS: NORVASC 10 MG PO (18:08)
[2024-10-13] MEDS: NOVOLOG FLEXPEN-MODERATE RESISTANCE SC (18:11)
[2024-10-13 18:13] LABS: Glucose - Point of Care 104 mg/dl (70-99)
[2024-10-13] MEDS: PROTONIX 40 MG PO (20:23)
[2024-10-13] MEDS: DESENEX/MITRAZOL/ZEASORB 1 APPLIC TOPICAL (20:23)
[2024-10-13] MEDS: TENORMIN 75 MG PO (20:23)
[2024-10-13 21:27] LABS: Glucose - Point of Care 107 mg/dl (70-99)
[2024-10-13] MEDS: PEPCID 20 MG PO (22:08)
--- NOTE | 2024-10-13 22:15 | PTCARENOTE ---
Scheduled hydralazine but HR 55-57, BP 113/50. Admin scheduled atenolol at 2022. Clarified with JOHN Harris on perimeters. Okay to give hydralazine. Will continue to monitor.
[2024-10-14 00:25] VITALS: BP 106/48
[2024-10-14] MEDS: ZOSYN 50 IV ×4 (03:23→21:43)
[2024-10-14] MEDS: NSS 1000 IV (03:23)
[2024-10-14] MEDS: TYLENOL 650 MG PO ×2 (06:41→14:29)
[2024-10-14 07:05] VITALS: BP 120/60
[2024-10-14 07:12] LABS: Glucose - Point of Care 100 mg/dl (70-99)
[2024-10-14 07:41] LABS: Hematocrit 33.2 % (37.0-47.0); Mean Corp Hgb Conc. 33.1 g/dL (33.0-37.0); Mean Corpuscular Hgb 33.8 pg (27.0-31.0); Mean Corpuscular Volume 102.2 fL (81.0-99.0); Mean Platelet Volume 9.8 fL (7.4-10.4); Platelet Count 344 10^3/uL (130-400); Red Blood Cell Count 3.25 10^6/uL (4.20-5.40); Red Cell Dist. Width 14.5 % (11.5-14.5); White Blood Cell Count 8.5 10^3/uL (4.8-10.8)
[2024-10-14 08:09] LABS: Blood Urea Nitrogen 19 mg/dl (7-17); Calcium 8.6 mg/dl (8.4-10.2); Carbon Dioxide 20 mmol/L (22-30); Chloride 114 mmol/L (98-107); Estimated Creatinine Clearance 45 ml/min; Glucose 84 mg/dl (70-99); Potassium 3.8 mmol/L (3.5-5.1); Sodium 142 mmol/L (135-145); eGFR 54.39
[2024-10-14] MEDS: NOVOLOG FLEXPEN-MODERATE RESISTANCE SC ×3 (08:40→16:38)
[2024-10-14] MEDS: PROTONIX 40 MG PO ×2 (08:46→19:42)
[2024-10-14] MEDS: NEURONTIN 200 MG PO (08:46)
[2024-10-14] MEDS: APRESOLINE 25 MG PO ×3 (08:46→21:42)
[2024-10-14] MEDS: LOW STRENGTH ASPIRIN 81 MG PO (08:46)
[2024-10-14] MEDS: VISBIOME 1 CAP PO (08:47)
[2024-10-14] MEDS: TENORMIN 75 MG PO (08:47)
[2024-10-14] MEDS: VITAMIN D3 (cholecalciferol) 50 MCG PO (08:48)
[2024-10-14] MEDS: DESENEX/MITRAZOL/ZEASORB 1 APPLIC TOPICAL ×2 (09:02→19:44)
--- NOTE | 2024-10-14 10:48 | CM ---
CM reviewed chart, patient seen bedside, initial assessment completed. Patient resides in a one story home, one step to enter, with spouse. Patient reports having a cane and walker at home, walker used for longer distances. Patient denies VN or SNF
history. Patient confirms PCP Arlene Cabello, pharmacy [facility], confirms prescription coverage. Patient denies insecurities at home. Patient reports her will provide transportation home when stable. CM will continue to follow for all
discharge planning needs.
Plan; home with spouse when stable
[2024-10-14 11:32] LABS: Glucose - Point of Care 86 mg/dl (70-99)
--- NOTE | 2024-10-14 13:42 | W.PN.HOSP.TC ---
Today's Communication/Plan
-
stop IVF
clears
cont zosyn
Assessment / Plan
Assessment / Plan
pt is a 69 year old female
abdominal pain with BRBPR--possible etiologies ischemic colitis (by CT scan) but pt afebrile, normal lactate, mildly tender--infectious possible---apprec GI--clears, stop IVF, pain meds, antiemetics--stool studies--cont zosyn
Essential HTN- cont home amlodipine, atenolol, hydralazine
NIDDM- hold home rybelsus, metformin--restart when taking better PO
HLD- hold home repatha
DVT proph-- SCDs
Code status-- FULL CODE
Anticipated Discharge: Within 24 hours
Subjective/Interval History
-
Date of Service: October 14, 2024
pt feeling better--no further bleeding
Objective Data
-
Labs:
Laboratory Results
10/14/24
06:41
WBC 8.5
Hgb 11.0 L
Hct 33.2 L
Plt Count 344
Sodium 142
Potassium 3.8
Chloride 114 H
Carbon Dioxide 20 L
BUN 19 H
Creatinine 1.1 H
Glucose 84
Calcium 8.6
Vital Signs:
max temp for 24 hours
10/13/24
15:00
Temp 98.6 F
Vital Signs
Temp Pulse Resp BP Pulse Ox
98.3 F 67 16 120/60 94
10/14/24 07:05 10/14/24 08:47 10/14/24 07:05 10/14/24 08:47 10/14/24 07:05
I&O
10/13/24 10/14/24 10/15/24
06:59 06:59 06:59
Intake Total 1390 / 1390
Balance 1390 / 1390
Review of Systems
-
All other systems: Reviewed and negative
Physical Exam
-
General: Well Developed, Well Nourished and No Apparent Distress
HEENT: Normocephalic and Atraumatic
Respiratory: Clear to Auscultation; Negative Wheezes, Rales, Rhonchi or Crackles
Cardiac: Regular Rhythm and S1/S2; Negative Murmur
GI: Soft, Nontender, Nondistended and Normal Bowel Sounds
Musculoskeletal: No Clubbing, No Cyanosis and No Edema
Neuro: Awake and Alert
Psych: Calm
[2024-10-14] MEDS: NSS IV (14:38)
[2024-10-14 15:08] VITALS: BP 119/56
--- NOTE | 2024-10-14 15:13 | W.PN.GI.CBS2 ---
Today's Communication / Plan
-
clears
Assessment / Plan
-
69 year old female with a history of CAD, HTN, hyperlipidemia, NIDDM (recently started on Rybelsus), CKD, chronic constipation and reflux presented to the ER after 2 episodes of bloody bowel movements and abdominal pain. Workup in the ER showing
leukocytosis (WBC 14.8), stable hemoglobin (12.7) and CT showing acute ischemic colitis. She is currently comfortable with no further bleeding, and no fever/chills.
IMPRESSION / PLAN:
Acute Ischemic Colitis -
IVF
clear liquids
follow hgb
Other medical issues managed as per hospitalist.
Subjective
Subjective
Date of Service: October 14, 2024
Pt with some bleeding, hungry, less abd d/c
Objective
Data Reviewed
Laboratory Data:
Laboratory Results
10/14/24 06:41
10/14/24 06:41
Laboratory Results
PT 13.6 Sec (11.4-14.6) 10/13/24 09:37
INR 1.01 10/13/24 09:37
APTT 27.6 Sec (23.4-35.0) 10/13/24 09:37
Total Bilirubin Cancelled 10/13/24 09:37
AST Cancelled 10/13/24 09:37
ALT Cancelled 10/13/24 09:37
Alkaline Phosphatase Cancelled 10/13/24 09:37
Vital Signs and I&O:
Vital Signs
Temp Pulse Resp BP Pulse Ox
97.8 F 56 16 119/56 95
10/14/24 15:08 10/14/24 15:08 10/14/24 15:08 10/14/24 15:08 10/14/24 15:08
I&O
10/13/24 10/14/24 10/15/24
06:59 06:59 06:59
Intake Total 1390 / 1390
Balance 1390 / 1390
Physical Exam
Physical Exam
HEENT: Anicteric
GI: Soft and Non Distended
Neuro: Non Focal
[2024-10-14 16:38] LABS: Glucose - Point of Care 83 mg/dl (70-99)
[2024-10-14] MEDS: NEURONTIN 300 MG PO ×2 (16:38→21:45)
[2024-10-14] MEDS: TOFRANIL 25 MG PO (18:40)
[2024-10-14] MEDS: NORVASC 10 MG PO (18:40)
[2024-10-14 19:33] VITALS: BP 118/53
[2024-10-14] MEDS: TENORMIN PO (19:43)
[2024-10-14 21:23] LABS: Glucose - Point of Care 119 mg/dl (70-99)
[2024-10-14 21:27] VITALS: BP 116/60
[2024-10-14] MEDS: PEPCID 20 MG PO (21:42)
[2024-10-14 23:59] VITALS: BP 107/51
[2024-10-15] MEDS: ZOSYN 50 IV ×4 (03:04→21:13)
[2024-10-15 06:46] LABS: Hematocrit 32.5 % (37.0-47.0); Hemoglobin 11.2 g/dL (12.0-16.0); Mean Corp Hgb Conc. 34.5 g/dL (33.0-37.0); Mean Corpuscular Volume 101.6 fL (81.0-99.0); Mean Platelet Volume 9.6 fL (7.4-10.4); Platelet Count 311 10^3/uL (130-400); Red Cell Dist. Width 14.2 % (11.5-14.5); White Blood Cell Count 6.3 10^3/uL (4.8-10.8)
[2024-10-15 07:02] LABS: Glucose - Point of Care 95 mg/dl (70-99)
[2024-10-15 07:12] LABS: ALT (SGPT) 20 U/L (0-35); AST (SGOT) 19 U/L (14-36); Albumin 3.4 g/dl (3.5-5.0); Alkaline Phosphatase 41 U/L (38-126); Blood Urea Nitrogen 12 mg/dl (7-17); Calcium 9.1 mg/dl (8.4-10.2); Carbon Dioxide 24 mmol/L (22-30); Chloride 115 mmol/L (98-107); Estimated Creatinine Clearance 49 ml/min; Glucose 103 mg/dl (70-99); Magnesium 1.8 mg/dl (1.6-2.3); Potassium 3.7 mmol/L (3.5-5.1); Sodium 144 mmol/L (135-145); Total Bilirubin 0.5 mg/dl (0.2-1.3); Total Protein 5.7 g/dl (6.3-8.2); eGFR > 60.00
[2024-10-15 07:30] VITALS: BP 126/56
[2024-10-15] MEDS: NOVOLOG FLEXPEN-MODERATE RESISTANCE SC ×3 (08:05→17:20)
[2024-10-15] MEDS: APRESOLINE 25 MG PO ×3 (08:11→21:12)
[2024-10-15] MEDS: NEURONTIN 200 MG PO (08:11)
[2024-10-15] MEDS: PROTONIX 40 MG PO ×2 (08:11→21:09)
[2024-10-15] MEDS: TENORMIN 75 MG PO ×2 (08:12→21:10)
[2024-10-15] MEDS: VISBIOME 1 CAP PO (08:13)
[2024-10-15] MEDS: VITAMIN D3 (cholecalciferol) 50 MCG PO (08:13)
[2024-10-15] MEDS: LOW STRENGTH ASPIRIN 81 MG PO (08:14)
[2024-10-15] MEDS: DESENEX/MITRAZOL/ZEASORB 1 APPLIC TOPICAL ×2 (08:23→21:07)
--- NOTE | 2024-10-15 10:22 | W.PN.GI.CBS2 ---
Today's Communication / Plan
-
low residue diet
Assessment / Plan
-
69 year old female with a history of CAD, HTN, hyperlipidemia, NIDDM (recently started on Rybelsus), CKD, chronic constipation and reflux presented to the ER after 2 episodes of bloody bowel movements and abdominal pain. Workup in the ER showing
leukocytosis (WBC 14.8), stable hemoglobin (12.7) and CT showing acute ischemic colitis. She is currently comfortable with no further bleeding, and no fever/chills.
IMPRESSION / PLAN:
Acute Ischemic Colitis - resolved
- advanced to low residue diet
- hgb is stable
- last colonoscopy within the year by Dr. Calero
- can f/u with dr. calero as outpatient
will sign off call with questions
Subjective
Subjective
Date of Service: October 15, 2024
No further abdominal pain or bleeding and tolerated po yesterday
Objective
Data Reviewed
Laboratory Data:
Laboratory Results
10/15/24 06:32
10/15/24 06:32
Laboratory Results
PT 13.6 Sec (11.4-14.6) 10/13/24 09:37
INR 1.01 10/13/24 09:37
APTT 27.6 Sec (23.4-35.0) 10/13/24 09:37
Magnesium 1.8 mg/dl (1.6-2.3) 10/15/24 06:32
Total Bilirubin 0.5 mg/dl (0.2-1.3) 10/15/24 06:32
AST 19 U/L (14-36) 10/15/24 06:32
ALT 20 U/L (0-35) 10/15/24 06:32
Alkaline Phosphatase 41 U/L (38-126) 10/15/24 06:32
Vital Signs and I&O:
Vital Signs
Temp Pulse Resp BP Pulse Ox
98.2 F 56 16 126/56 95
10/15/24 07:30 10/15/24 08:11 10/15/24 07:30 10/15/24 08:11 10/15/24 07:30
I&O
10/14/24 10/15/24 10/16/24
06:59 06:59 06:59
Intake Total 1390 / 1390 5 / 186
Balance 1390 / 1390 1864 / 186
Physical Exam
Physical Exam
HEENT: Anicteric
GI: Soft, Non Distended and Non Tender
Neuro: Non Focal
[2024-10-15 11:30] LABS: Glucose - Point of Care 153 mg/dl (70-99)
--- NOTE | 2024-10-15 13:56 | W.PN.HOSP.TC ---
Today's Communication/Plan
-
fulls
advance to low residue as tolerated
hopeful d/c home tomorrow
Assessment / Plan
Assessment / Plan
pt is a 69 year old female
abdominal pain with BRBPR--possible etiologies ischemic colitis (by CT scan) but pt afebrile, normal lactate, mildly tender--infectious possible---apprec GI--received low res from GI but didn't tolerate--going to fulls for dinner--stop IVF, pain
meds, antiemetics--stool studies not obtained--cont zosyn
Essential HTN- cont home amlodipine, atenolol, hydralazine
NIDDM- hold home rybelsus, metformin--restart when taking better PO
HLD- hold home repatha
DVT proph-- SCDs
Code status-- FULL CODE
Anticipated Discharge: Within 24 hours
Subjective/Interval History
-
Date of Service: October 15, 2024
not tolerating solid diet
Objective Data
-
Labs:
Laboratory Results
10/15/24
06:32
WBC 6.3
Hgb 11.2 L
Hct 32.5 L
Plt Count 311
Sodium 144
Potassium 3.7
Chloride 115 H
Carbon Dioxide 24
BUN 12
Creatinine 1.0
Glucose 103 H
Calcium 9.1
Total Bilirubin 0.5
AST 19
ALT 20
Alkaline Phosphatase 41
Vital Signs:
max temp for 24 hours
10/14/24
23:59
Temp 97.8 F
Vital Signs
Temp Pulse Resp BP Pulse Ox
98.2 F 56 16 126/56 95
10/15/24 07:30 10/15/24 08:11 10/15/24 07:30 10/15/24 08:11 10/15/24 08:42
I&O
10/14/24 10/15/24 10/16/24
06:59 06:59 06:59
Intake Total 1390 / 1390 1864
Balance 1390 / 1390 1864
Review of Systems
-
All other systems: Reviewed and negative
Abdomen/GI: Reports Abdominal Pain (burning after eating solid food)
Physical Exam
-
General: Well Developed, Well Nourished and No Apparent Distress
HEENT: Normocephalic and Atraumatic
Respiratory: Clear to Auscultation; Negative Wheezes, Rales or Rhonchi
Cardiac: Regular Rhythm and S1/S2; Negative Murmur
GI: Soft, Nondistended, Normal Bowel Sounds and Tender
Musculoskeletal: No Clubbing, No Cyanosis and No Edema
Neuro: Awake
[2024-10-15 15:12] VITALS: BP 131/74
[2024-10-15] MEDS: TUMS EX (EXTRA STRENGTH) CHEWABLE TABLET 300 MG PO ×2 (15:18→21:14)
[2024-10-15] MEDS: NEURONTIN 300 MG PO ×2 (15:29→21:14)
[2024-10-15 16:33] LABS: Glucose - Point of Care 135 mg/dl (70-99)
[2024-10-15] MEDS: NORVASC 10 MG PO (17:28)
[2024-10-15] MEDS: TOFRANIL 25 MG PO (17:29)
[2024-10-15] MEDS: PEPCID 20 MG PO (21:11)
[2024-10-15 21:17] LABS: Glucose - Point of Care 120 mg/dl (70-99)
[2024-10-15 23:34] VITALS: BP 122/54
[2024-10-16] MEDS: ZOSYN 50 IV ×2 (03:48→09:08)
[2024-10-16 07:10] LABS: Hematocrit 34.2 % (37.0-47.0); Hemoglobin 11.6 g/dL (12.0-16.0); Mean Corp Hgb Conc. 33.9 g/dL (33.0-37.0); Mean Corpuscular Hgb 34.3 pg (27.0-31.0); Mean Corpuscular Volume 101.2 fL (81.0-99.0); Mean Platelet Volume 9.8 fL (7.4-10.4); Platelet Count 334 10^3/uL (130-400); Red Blood Cell Count 3.38 10^6/uL (4.20-5.40); White Blood Cell Count 6.5 10^3/uL (4.8-10.8)
[2024-10-16 07:47] LABS: Glucose - Point of Care 104 mg/dl (70-99)
[2024-10-16 08:00] VITALS: BP 122/49
--- NOTE | 2024-10-16 08:03 | W.PN.HOSP.TC ---
Addendum entered and electronically signed by Bereket Lopez MD 10/16/24 14:41:
I saw and evaluated the patient. I reviewed the resident�s note and agree with findings and plan as documented in the resident�s note.
Abdominal pain with BRBPR--possible etiologies ischemic colitis (by CT scan) but pt afebrile, normal lactate, mildly tender--infectious possible---apprec GI--received low res from GI but didn't tolerate-discontinue empiric antibiotics at discharge.
Patient able to tolerate low lactose diet. Patient to be discharged with follow-up with GI in the office
Essential HTN- cont home amlodipine, atenolol, hydralazine
NIDDM- hold home Rybelsus, metformin--restart when taking better PO
HLD- hold home Repatha
DVT proph-- SCDs
Code status-- FULL CODE
More than 30 minutes spent in discharge including
Final examination of the patient
Summarizing hospital stay
Instructions for continuing care to all relevant caregivers
Preparation of discharge records, prescriptions, and referral forms
Total time spent (in minutes): 39 mins
Original Note:
Today's Communication/Plan
-
- stop abx
- dc today
Assessment / Plan
Assessment / Plan
IMPRESSION:
69yo F [facility] CAD s/p stent, HTN, HLD, NIDDM, CKD presenting to [facility] ED for bloody bowel movements. This started last night into early this morning. She was constipated, took miralax and prune juice. Had episode of nonbloody vomiting last night. Heme
(+), CT abd/pelvis c/w acute ischemic colitis.
PLAN:
Possible acute ischemic colitis vs infectious colitis vs diverticulitis
- could be secondary to microthrombi
- confirmed by abd/pelvis CT
- lactate wnl
- zosyn stopped today
- antiemetics
- appreciate GI input
HTN
- cont home amlodipine, atenolol, hydralazine
NIDDM
- hold home rybelsus, metformin
HLD
- hold home repatha
Diet: low residue
DVT ppx: SCDs
Code status: FULL CODE
Anticipated Discharge: Within 24 hours
Subjective/Interval History
-
Date of Service: October 16, 2024
No acute overnight events
Objective Data
-
Labs:
Laboratory Results
10/16/24
06:11
WBC 6.5
Hgb 11.6 L
Hct 34.2 L
Plt Count 334
Sodium Pending
Potassium Pending
Chloride Pending
Carbon Dioxide Pending
BUN Pending
Creatinine Pending
Glucose Pending
Calcium Pending
Vital Signs:
Vital Signs
Temp Pulse Resp BP Pulse Ox
98.3 F 57 18 122/49 97
10/16/24 08:00 10/16/24 08:00 10/16/24 08:00 10/16/24 08:00 10/16/24 08:00
I&O
10/15/24 10/16/24 10/17/24
06:59 06:59 06:59
Intake Total 1864 1340 / 1340
Balance 1864 1340 / 1340
Review of Systems
-
History Source: Patient
Constitutional: Reports No Symptoms
Respiratory: Reports No Symptoms
Cardiac: Reports No Symptoms
Abdomen/GI: Reports No Symptoms
Neuro: Reports No Symptoms
Physical Exam
-
General: Well Developed, Well Nourished and Obese
HEENT: Normocephalic and Atraumatic
Respiratory: Clear to Auscultation and Non Labored Respirations
Cardiac: Regular Rhythm and S1/S2
GI: Soft, Nontender, Nondistended and Normal Bowel Sounds
Musculoskeletal: No Clubbing, No Cyanosis and No Edema
Skin: Warm and Dry
Neuro: Awake, Alert and Oriented
Psych: Calm
[2024-10-16 08:17] LABS: Blood Urea Nitrogen 11 mg/dl (7-17); Calcium 9.3 mg/dl (8.4-10.2); Carbon Dioxide 22 mmol/L (22-30); Chloride 113 mmol/L (98-107); Estimated Creatinine Clearance 49 ml/min; Glucose 103 mg/dl (70-99); Magnesium 1.8 mg/dl (1.6-2.3); Potassium 3.7 mmol/L (3.5-5.1); Sodium 142 mmol/L (135-145); eGFR > 60.00
--- NOTE | 2024-10-16 08:35 | W.PN.GI.CBS2 ---
Today's Communication / Plan
-
advanced diet with counseling
Assessment / Plan
-
69 year old female with a history of CAD, HTN, hyperlipidemia, NIDDM (recently started on Rybelsus), CKD, chronic constipation and reflux with resolved ischemic colitis
IMPRESSION / PLAN:
Acute Ischemic Colitis - resolved
- d/w pt not to eat and recline for 2 hours
- also changed diet to lactose free and gave her some counseling on what to eat
- last colonoscopy within the year by Dr. Calero
- can f/u with dr. calero as outpatient. our office will call for an appt
will sign off call with questions
Subjective
Subjective
Date of Service: October 16, 2024
Pt feels fine. had eggs with [place] and cheese and felt gassy yesterday. no pain
Objective
Data Reviewed
Laboratory Data:
Laboratory Results
10/16/24 06:11
10/16/24 06:11
Laboratory Results
PT 13.6 Sec (11.4-14.6) 10/13/24 09:37
INR 1.01 10/13/24 09:37
APTT 27.6 Sec (23.4-35.0) 10/13/24 09:37
Magnesium 1.8 mg/dl (1.6-2.3) 10/16/24 06:11
Total Bilirubin 0.5 mg/dl (0.2-1.3) 10/15/24 06:32
AST 19 U/L (14-36) 10/15/24 06:32
ALT 20 U/L (0-35) 10/15/24 06:32
Alkaline Phosphatase 41 U/L (38-126) 10/15/24 06:32
Vital Signs and I&O:
Vital Signs
Temp Pulse Resp BP Pulse Ox
98.3 F 57 18 122/49 97
10/16/24 08:00 10/16/24 08:00 10/16/24 08:00 10/16/24 08:00 10/16/24 08:00
I&O
10/15/24 10/16/24 10/17/24
06:59 06:59 06:59
Intake Total 1864 1340 / 1340
Balance 1864 1340 / 1340
Physical Exam
Physical Exam
HEENT: Anicteric
GI: Soft, Non Distended and Non Tender
Neuro: Non Focal and Other
[2024-10-16] MEDS: NOVOLOG FLEXPEN-MODERATE RESISTANCE SC (08:47)
[2024-10-16] MEDS: VISBIOME 1 CAP PO (09:04)
[2024-10-16] MEDS: TENORMIN 75 MG PO (09:05)
[2024-10-16] MEDS: APRESOLINE 25 MG PO (09:05)
[2024-10-16] MEDS: LOW STRENGTH ASPIRIN 81 MG PO (09:06)
[2024-10-16] MEDS: NEURONTIN 200 MG PO (09:06)
[2024-10-16] MEDS: PROTONIX 40 MG PO (09:06)
[2024-10-16] MEDS: VITAMIN D3 (cholecalciferol) 50 MCG PO (09:06)
[2024-10-16] MEDS: DESENEX/MITRAZOL/ZEASORB 1 APPLIC TOPICAL (09:09)
[2024-10-16 11:48] LABS: Glucose - Point of Care 191 mg/dl (70-99)
--- NOTE | 2024-10-16 12:00 | CM ---
Chart reviewed and patient to return to home with spouse when stable, no needs.
Plan; Home no needs.
[2024-10-16] MEDS: NOVOLOG FLEXPEN-MODERATE RESISTANCE 1 UNITS SC (12:20)
--- NOTE | 2024-10-16 13:11 | W.DCSUMMARY ---
Discharge Summary
Discharge Data
Date of Admission: 10/13/24
Date of Discharge: 10/16/24
-
Pending Results: No
Hospital Course
Discharging Physician : Dr. Nara Noel, Dr. Bereket Lopez
Disposition : home
Primary care physician : Arlene Cabello
Principal Discharge diagnosis : Ischemic colitis
Chronic Discharge diagnosis : CAD, HTN, HLD, NIDDM, CKD
Hospital Course : 69yo F [facility] CAD, HTN, HLD, NIDDM, CKD presenting to [facility] ED for bloody bowel movements. Reports stools with bright red blood. This started last night into early this morning. She was constipated, took miralax and prune juice. Had
episode of nonbloody vomiting last night. +lower abdominal cramping, -fevers, -chills, -CP. UTD colonoscopy. Recent travel to [facility] and [place] on a river cruise, returned 10/05. No sick contacts or recent abx. Heme (+) in ED. GI consulted,
planned for supportive care. IVF stopped and pt placed on clear liquid diet. Pt tolerated diet well, continued to advance. Pt ordered an omlette one morning and did not feel well afterwards. After regressing the diet, the pt continued to improve.
Recommend short term lactose free diet while recovering.
Important imaging findings :
CT abd/pelvis 10/13:
1. ACUTE ISCHEMIC COLITIS in the distal transverse colon, hepatic flexure of the colon, and descending colon with mild to moderate circumferential wall thickening and submucosal edema. An acute infectious colitis or inflammatory bowel disease are
less likely diagnostic possibilities.
2. Moderate diverticulosis in the descending and sigmoid colon.
3. Moderate diffuse hepatic steatosis.
4. Severe calcific atherosclerotic plaque in the abdominal aorta and proximal superior mesenteric artery.
5. Mild distention of the urinary bladder.
6. 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
Procedure findings : n/a
Discharge Plan
-
Patient Disposition: Home (Routine Discharge)
Discharge Diagnosis/Procedures: Ischemic colitis
Condition: Fair
Diet: Other diet
Additional Diets: Lactose free
Activity: As tolerated
Driving Restrictions: As prior to admission
Bathing Restrictions: OK to Shower
Instructions: Lactose-Controlled Diet
Referrals:
Arlene Cabello DO [Family Provider, Family Practice] - in one week
Jhonatan Quintero MD [Active, Gastroenterology] - in two to four weeks
Prescriptions:
Continued
cholecalciferol (vitamin D3) [Vitamin D3] 2,000 UNIT capsule
2,000 unit PO DAILY
amlodipine 10 MG tablet
10 mg PO QPM Qty: 1 0RF
atenolol 50 MG tablet
75 mg PO BID
metformin 500 MG tablet
250 mg PO DAILY
ferrous sulfate [FeroSul] 325 MG tablet
325 mg PO DAILY
Repatha SureClick 140 MG/ML pen injector
140 mg SQ Q2W
De3 Dry Eye [place] Benefits 1 EACH capsule
1 ea PO DAILY
hydralazine 25 mg tablet
25 mg PO TID
omeprazole 20 mg Capsule,Delayed Release(Dr/Ec)
20 mg PO BID
aspirin 81 mg Tablet
81 mg PO DAILY
gabapentin 100 mg Capsule
200 mg PO DAILY@0800
imipramine HCl 25 mg Tablet
25 mg PO QPM
Visbiome 112.5 billion cell Capsule
1 cap PO DAILY
gabapentin 300 mg capsule
300 mg PO BID@1600,2100
famotidine 40 mg Tablet
20 mg PO HS Qty: 0 0RF
mupirocin 2 % Ointment
1 applic TOPICAL BID
estradiol [Estrace] 0.01 % (0.1 mg/gram) Cream
1 appful VAGINAL MOFR
Rybelsus 3 mg Tablet
3 mg PO DAILY
Discharge Orders:
Discharge Patient (As Directed); Ordered 10/16/24
Ordered By: Bereket Lopez
Discharge Date and Time
Print Language: CITIZEN [place]
[2024-10-16 14:14] VITALS: BP 131/61
== END 2024-10-16 14:31 | disposition home or self-care (01) | DRG 394 ==
LOC: 4 WEST ACU 14:14
PROVIDERS: Physician Assistant Medical; ADMITTING PHYSICIAN Internal Medicine; ATTENDING PHYSICIAN Hospitalist; CONSULT PHYSICIAN Internal Medicine; EMERGENCY PHYSICIAN Emergency Medicine; FAMILY PHYSICIAN Family Medicine
DX: K55.039 Acute (reversible) ischemia of large intestine, extent unspecified (principal); K62.5 Hemorrhage of anus and rectum; I25.10 Atherosclerotic heart disease of native coronary artery without angina pectoris; E78.00 Pure hypercholesterolemia, unspecified; I12.9 Hypertensive chronic kidney disease with stage 1 through stage 4 chronic kidney disease, or unspecified chronic kidney disease; E11.22 Type 2 diabetes mellitus with diabetic chronic kidney disease; N18.9 Chronic kidney disease, unspecified; K57.30 Diverticulosis of large intestine without perforation or abscess without bleeding; K76.0 Fatty (change of) liver, not elsewhere classified; N32.89 Other specified disorders of bladder; M47.819 Spondylosis without myelopathy or radiculopathy, site unspecified; Z91.040 Latex allergy status; Z79.82 Long term (current) use of aspirin; Z79.84 Long term (current) use of oral hypoglycemic drugs; Z95.5 Presence of coronary angioplasty implant and graft; K59.09 Other constipation; K21.9 Gastro-esophageal reflux disease without esophagitis; D72.829 Elevated white blood cell count, unspecified; Z79.899 Other long term (current) drug therapy; Z88.1 Allergy status to other antibiotic agents; Z88.7 Allergy status to serum and vaccine
CPT/HCPCS: 74177; 80048; 80053; 82962; 83605; 83735; 85025; 85027; 85610; 85730; 86850; 86900; 86901; 93005; 99284; Q9967

== ENCOUNTER 2024-10-26 19:53 | Inpatient (IN) | payer OTHER, SELFPAY ==
[2024-10-26 16:31] VITALS: BP 101/72
[2024-10-26 16:58] LABS: Urine Albumin 3+ (Neg - Trace); Urine Bilirubin Negative (Negative); Urine Character Cloudy (Clear); Urine Color Yellow; Urine Glucose Negative (Negative); Urine Ketone Negative (Negative); Urine Leukocyte 3+ (Negative); Urine Nitrite Negative (Negative); Urine Occult Blood 2+ (Negative); Urine Urobilinogen Negative (Neg - 1+)
[2024-10-26 17:29] LABS: Urine Bacteria Many (Negative); Urine Red Blood Cell 0-2 /HPF (0-2); Urine Squamous Cell 0-2 /LPF (Few); Urine White Cell 80-90 /HPF (0-5)
--- NOTE | 2024-10-26 18:08 | ED.GENMED ---
History of Present Illness
General
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
Source: patient
Exam Limitations: none
Time Seen by Provider: 10/26/24 17:05
Nursing documentation reviewed up to this point in time: agreed with
History of Present Illness
History of Present Illness:
Patient to ED with complaint of UTI symptoms. States she was diagnosed iwth UTI 3 days ago. Culture result Klelsiella pneumoniae, susceptible to Bactrim. SHe is allegic to bactrim. PCP spoke with patients urologist who recommended 7 day course
of Doxycyline 100mg bid. She reports no improvement. Advised to come to ED . Denies fever/chills, back pain, abd. pain. To ED accompanied by spouse.
Past History
Past History
ED Past Medical History: CAD, HTN, Hypercholesterolemia, NIDDM and Renal failure
ED Past Surgical History: Cardiac, Orthopedic and Urological
Social History
Tobacco: Non-smoker
Alcohol: Occasional
Drug: None
Personal:
Living: with family
Employment: Retired
Family History
Family History: CAD
Review of Systems
Review of Systems
Allergies reviewed?: Yes
All Other Systems: ROS reviewed and negative except as documented in HPI and ROS
Constitutional: Reports no symptoms
EENT: Reports no symptoms
Respiratory: Reports no symptoms
Cardiac: Reports no symptoms
ABD/GI: Reports no symptoms
: Reports dysuria, frequency and urgency
Musculoskeletal: Reports no symptoms
Skin: Reports no symptoms
Neurological: Reports no symptoms
Psychiatric: Reports no symptoms
Phy Exam
General Physical Exam
General Presentation: well appearing
General age: appears stated age
General Skin: warm and dry
General Habitus: normal
Eye Exam
Eye Exam: other (s/p cataract surgery, corneal transplant 10/24/2024. Clear shield in place.)
Gastrointestinal Exam
Gastrointestinal Exam: normal bowel sounds, non tender and soft
Musculoskeletal Exam
Musculoskeletal Exam: full ROM
Skin Exam
Skin Exam: normal color, warm/dry and no rash
Psychiatric Exam
Psychiatric Exam: normal mood/affect
Course
Orders/Labs/Results
Orders:
Orders
10/26/24 Dinner
1800 calorie (15 carb) Diabetic
At Your Request: Limited Participation
10/26/24 16:48
Urinalysis Reflex To Culture Urgent
Date Specimen was Collected: 10/26/24
Time Specimen was Collected: 16:35
Urine Microscopic Reflex Cult Urgent
Urine Culture Urgent
GALA Source: U
Specimen Description:
Date Specimen was Collected: 10/26/24
Time Specimen was Collected: 16:35
10/26/24 18:15
Cefepime HCl [Maxipime] 2,000 mg IV NOW STA
10/26/24 18:52
Complete Blood Count/With Diff Urgent
10/26/24 19:18
Admit/Transfer Patient As Directed
Co-Sign Provider:
Level of Care: Inpatient admission
Assign to:: Medical/Surgical
Physician / Group: Dada
Diagnosis: complicated uti
Reason for Hospitalization: resistant uti
Expected length of stay greater than two midnights?: Yes
ELOS- Estimated Length of Stay in days: 2
I certify the patient meets the requirements for IP care: Yes
PRN Pain Medication Management As Directed
May give lesser potent ordered pain med per pt: Yes
preference::
Protocol:: Medication orders for pain may be administered in a
manner that supports deferring to patient preference
when the pt is:
- Requesting an ordered lesser potent pain medication.
Least to most potent pain medications are defined
as: acetaminophen < NSAID < tramadol < opioids
(morphine, oxycodone, hydromorphone).
- Requesting a lesser dose of the same medication IF
ORDERED.
- Requesting a less intrusive route of administration
if both routes are prescribed by the provider (PO <
IV).
10/26/24 19:20
Code Status As Directed
Resuscitation Status: Full Code
10/26/24 19:37
Comprehensive Metabolic Panel Urgent
10/26/24 20:45
Acetaminophen [Tylenol] 650 mg PO Q4HPRN PRN
Atenolol [Tenormin] 75 mg PO BID
Bisacodyl [Dulcolax] 10 mg RECTAL [id number] PRN
Docusate W/Senna [Senokot-S] 1 tablet PO BIDPRN PRN
Ondansetron Injectable [Zofran] 4 mg IV Q6HPRN PRN
Polyethylene Glycol Powder [Miralax] 17 grams PO DAILYPRN PRN
10/26/24 20:45
Activity As Directed
Activity Level: With Assistance
Bedside Glucose Monitoring As Directed
Frequency: AC&HS
Vital Signs As Directed
Frequency: Per unit guidelines
Pulse Ox/spot Check [RESP] Routine
Quantity: 1
DX Deep Vein Thrombosis Video Routine
10/26/24 21:00
Gabapentin [Neurontin] 300 mg PO BID@1600,2100
10/26/24 22:00
Famotidine [Pepcid] 20 mg PO HS
HydrALAZINE [Apresoline] 25 mg PO TID
Imipramine [Tofranil] 25 mg PO HS
Pantoprazole [Protonix] 40 mg PO BID
10/27/24 06:00
Basic Metabolic Panel IN AM
Complete Blood Count/No Diff IN AM
10/27/24 07:30
Insulin Aspart Corrective Low [Novolog Flexpen-Low Resistance] See Protocol SC AC
10/27/24 08:00
Aspirin Chewable [Low Strength Aspirin] 81 mg PO DAILY
Cefepime HCl [Maxipime] 2,000 mg IV Q12H
Cholecalciferol (Vitamin D3) [VITAMIN D3 (cholecalciferol)] 50 mcg PO DAILY
Ferrous Sulfate [Feosol] 325 mg PO DAILY
Gabapentin [Neurontin] 200 mg PO DAILY@0800
Lactobac/Bifidobac [Visbiome] 1 cap PO DAILY
METFORMIN HCl [Glucophage] 250 mg PO DAILY
semaglutide [Rybelsus] See Dose Instructions PO DAILY
10/27/24 18:00
Amlodipine [Norvasc] 10 mg PO QPM
Enoxaparin Sodium [Lovenox] 40 mg SC QPM
Abnormal Lab Results
10/26/24 10/26/24 10/26/24
16:48 18:52 19:37
WBC 12.4 H 10^3/uL
(4.8-10.8)
RBC 3.95 L 10^6/uL
(4.20-5.40)
MCV 100.8 H fL
(81.0-99.0)
MCH 33.9 H pg
(27.0-31.0)
Plt Count 404 H 10^3/uL
(130-400)
Abs Immat Gran (auto) 0.1 H 10^3/uL
(0-0.05)
Absolute Neuts (auto) 9.5 H 10^3/uL
(1.4-6.5)
Absolute Monos (auto) 1.1 H 10^3/uL
(0.1-0.6)
Immature Gran % 0.6 H %
(0-0.5)
Neutrophils % 76.7 H %
(42.2-75.2)
Lymphocytes % 11.2 L %
(20.5-51.1)
Chloride 111 H mmol/L
(98-107)
BUN 20 H mg/dl
(7-17)
Glucose 130 H mg/dl
(70-99)
Ur Occult Blood Reflex 2+ A
(Negative)
Leukocyte Esterase Rfl 3+ A
(Negative)
Urine WBC (Reflex) 80-90 A /HPF
(0-5)
Urine Bacteria (Reflex) Many A
(Negative)
Urine Albumin (Reflex) 3+ A
(Neg - Trace)
10/26/24 18:52
10/26/24 19:37
Vital Signs
Initial and Last Documented VS:
Initial Vital Signs
Temp Pulse Resp BP Pulse Ox
98.0 F 77 18 101/72 97
10/26/24 16:31 10/26/24 16:31 10/26/24 16:31 10/26/24 16:31 10/26/24 16:31
Last Documented Vital Signs
Temp Pulse Resp BP Pulse Ox
98.2 F 72 12 102/74 95
10/26/24 23:40 10/26/24 23:40 10/26/24 23:40 10/26/24 23:40 10/26/24 23:40
*Pulse Oximetry
SaO2: 97
Oxygen Mode of Delivery: Room air
*Critical Care Note
Total Time (30-74mins, 75-104mins- exclusive of procedures): Not Applicable
Update Note
Update Note:
Patient to ED wtih ongoing UTI symptoms. Currently treating Klebsiella with doxycycline. Unable to take bactrim due to allergy. Will need to admit for IV antibiotics. Discussed plan with patient and spouse. She remains awake and alert, nontoxic
appearing. VSS, afebrile.
ED Attending Note
-
Portions of this chart may have been created with voice recognition software.� Occasional wrong word or��sound alike� substitutions may have occurred due to the inherent limitations of voice recognition software.
Discharge Plan
Departure
Patient Disposition: Admit
Date of Disposition: 10/26/24
Time of Disposition: 18:17
Presentation/result/management discussed w/ accepting MD/DO: Hospitalist
Patient with high blood pressure during this ER visit?: No
Condition: Fair
Covid-19: Not Applicable
Discharge Problem:
UTI (urinary tract infection)
Interventions
Interventions:
*Risk Screen - Suicide Last Done: 10/26/24 21:17
*General Assessment Last Done: 10/26/24 16:31
*Neglect/Abuse Screening Last Done: 10/26/24 16:31
*ED- Fall Risk Assessment Last Done: 10/26/24 19:02
*ED COVID-19 Vaccine History Last Done: 10/26/24 21:17
*Nursing Disposition Last Done: 10/26/24 20:41
ED-Female Genitourinary Assessment Last Done: 10/26/24 19:02
Discharge Date and Time
Discharge Date/Time: 10/26/24 20:42
[2024-10-26] MEDS: MAXIPIME 2000 MG IV (18:53)
[2024-10-26 19:00] VITALS: BP 154/60; BMI 32.9
[2024-10-26 19:07] LABS: % Basophils 0.9 % (0-2); % Eosinophils 1.9 % (0-6); % Immature Granulocytes 0.6 % (0-0.5); % Lymphocytes 11.2 % (20.5-51.1); % Monocytes 8.7 % (1.7-9.3); % Neutrophils 76.7 % (42.2-75.2); Absolute Basophils 0.1 10^3/uL (0-0.2); Absolute Eosinophils 0.2 10^3/uL (0-0.7); Absolute Immature Granulocytes 0.1 10^3/uL (0-0.05); Absolute Lymphocytes 1.4 10^3/uL (1.2-3.4); Absolute Monocytes 1.1 10^3/uL (0.1-0.6); Absolute Neutrophils 9.5 10^3/uL (1.4-6.5); Hematocrit 39.8 % (37.0-47.0); Hemoglobin 13.4 g/dL (12.0-16.0); Mean Corp Hgb Conc. 33.7 g/dL (33.0-37.0); Mean Corpuscular Hgb 33.9 pg (27.0-31.0); Mean Corpuscular Volume 100.8 fL (81.0-99.0); Mean Platelet Volume 9.9 fL (7.4-10.4); Nucleated Red Blood Cells % 0 %; Platelet Count 404 10^3/uL (130-400); Red Blood Cell Count 3.95 10^6/uL (4.20-5.40); Red Cell Dist. Width 13.3 % (11.5-14.5); White Blood Cell Count 12.4 10^3/uL (4.8-10.8)
--- NOTE | 2024-10-26 19:13 | HPS.HSE ---
Family Physician
-
Family Physician: Arlene Cabello
Chief Complaint
-
Urinary symptoms
History of Present Illness
That is a 68-year-old with past medical history significant for diabetes, hypertension, hyperlipidemia, CAD, recent history of hospital admission for ischemic colitis who presents to the emergency department with ongoing urinary tract symptoms.
According to records the patient has been having urinary symptoms for a few days now and is status post 3 days of doxycycline without improvement in any of her symptoms. Urinalysis from outpatient studies shows a positive Klebsiella UTI that is
generally insensitive to oral antibiotics except for Bactrim which patient is allergic to.
Here in the emergency department she is afebrile, blood pressure was 154/60 with a pulse of 70 satting 98% on room air.
She has a white count of 12.4, rest of hemoglobin and platelets were normal. Electrolytes BUN/creatinine are pending at this time.
UA still markedly positive for leukocyte esterase WBCs and bacteria.
Medical History
Past Medical History
Past Medical History: Reports CAD, HTN, Hypercholesterolemia, NIDDM and Renal Failure
Past Surgical History: Reports Cardiac, Orthopedic and Urological
Social History
Tobacco: Non-smoker
Alcohol: Occasional
Drug: None
Personal:
Living: With Family
Employment: Retired
Family History
Family History: CAD
Allergies / Home Medications
Allergies reflects when Allergies were last updated in [employer].
Home Medications with original date entered in [employer]
Allergy/Medication List:
Allergies
Allergy/AdvReac Type Severity Reaction Status Date / Time
Influenza Virus Vaccines Allergy Severe Guillane Verified 10/13/24 09:02
barre
sulfamethoxazole (From Allergy Severe high Verified 10/13/24 09:02
Bactrim) potassium
trimethoprim (From Bactrim) Allergy Severe high Verified 10/13/24 09:02
potassium
latex Allergy Intermediate Rash Verified 10/13/24 09:02
nitrofurantoin (From Allergy Intermediate Rash Verified 10/13/24 09:02
Macrobid)
Home Medications
cholecalciferol (vitamin D3) [Vitamin D3] 2,000 UNIT capsule
2,000 unit PO DAILY
amlodipine 10 MG tablet
10 mg PO QPM Qty: 1 0RF
atenolol 50 MG tablet
75 mg PO BID
metformin 500 MG tablet
250 mg PO DAILY
ferrous sulfate [FeroSul] 325 MG tablet
325 mg PO DAILY
Repatha SureClick 140 MG/ML pen injector
140 mg SQ Q2W
De3 Dry [employer] [place] Benefits 1 EACH capsule
1 ea PO DAILY
hydralazine 25 mg tablet
25 mg PO TID
omeprazole 20 mg Capsule,Delayed Release(Dr/Ec)
20 mg PO BID
aspirin 81 mg Tablet
81 mg PO DAILY
gabapentin 100 mg Capsule
200 mg PO DAILY@0800
imipramine HCl 25 mg Tablet
25 mg PO QPM
Visbiome 112.5 billion cell Capsule
1 cap PO DAILY
gabapentin 300 mg capsule
300 mg PO BID@1600,2100
famotidine 40 mg Tablet
20 mg PO HS Qty: 0 0RF
mupirocin 2 % Ointment
1 applic TOPICAL BID
estradiol [Estrace] 0.01 % (0.1 mg/gram) Cream
1 appful VAGINAL MOFR
Rybelsus 3 mg Tablet
3 mg PO DAILY
Review of Systems
-
History Source: Patient
A 12 point ROS was completed and negative except as noted: Yes
Constitutional: Reports No Symptoms
EENT: Reports No Symptoms
Respiratory: Reports No Symptoms
Cardiac: Reports No Symptoms
Abdomen/GI: Reports No Symptoms
: Reports No Symptoms
Musculoskeletal: Reports No Symptoms
Skin: Reports No Symptoms
Neurological: Reports No Symptoms
Endocrine: Reports No Symptoms
Hematologic/Lymphatic: Reports Bleeding
Psych: Reports No Symptoms
Physical Exam
Vital Signs
Vital Signs
Temp Pulse Resp BP Pulse Ox
98.0 F 77 18 154/60 98
10/26/24 16:31 10/26/24 16:31 10/26/24 16:31 10/26/24 19:00 10/26/24 19:02
Physical Exam
General: Well Developed, Well Nourished and Obese
HEENT: NormoCephalic, Anicteric and Atraumatic
Respiratory: Clear and Non Labored Respirations
Cardiac: S1/S2 and Regular Rhythm
GI: Soft, Non Tender, Non Distended, No Hernias and Other (hypoactive BS)
Genito-urinary: Deferred by me
Musculoskeletal: No Clubbing, No Cyanosis, Edema, Left Lower Extremity and Edema, Right Lower Extremity
Skin: Warm and Dry
Neuro: Awake, Alert and Oriented
Psych: Calm
Laboratory Results
-
10/26/24 18:52
Data Reviewed
-
Lab Data: Labs Reviewed by me
Old Records: Reviewed
Impression/Plan
-
IMPRESSION:
Urinary tract infections, failure of outpatient antibiotics and resistant Klebsiella on most recent urine cultures. She is afebrile and currently hemodynamically stable.
PLAN:
UTI -Klebsiella, sensitive to ceftriaxone and cefepime but resistant to Zosyn. Recent hospital admission with discharge on 16 October. She is currently afebrile hemodynamically stable.
-Admit to [facility]
-Urine culture sent
-Will continue with IV cefepime at this time
-Consult infectious disease
-Pain control antiemetics
Diabetes
-Will continue metformin
-Sliding scale insulin
- continue patient own semaglutide
Hypertension
-Continue patient's atenolol
� Continue patient's amlodipine
� Continue hydralazine
CAD -
contnue asa 81
patient on repatha at home
DVT PPX - lovenox sq
Code status - Full Code
[2024-10-26 20:03] LABS: ALT (SGPT) 20 U/L (0-35); AST (SGOT) 21 U/L (14-36); Albumin 4.1 g/dl (3.5-5.0); Alkaline Phosphatase 65 U/L (38-126); Blood Urea Nitrogen 20 mg/dl (7-17); Calcium 9.6 mg/dl (8.4-10.2); Carbon Dioxide 22 mmol/L (22-30); Chloride 111 mmol/L (98-107); Estimated Creatinine Clearance 51 ml/min; Glucose 130 mg/dl (70-99); Potassium 3.8 mmol/L (3.5-5.1); Sodium 141 mmol/L (135-145); Total Bilirubin 0.4 mg/dl (0.2-1.3); Total Protein 6.5 g/dl (6.3-8.2); eGFR > 60.00
[2024-10-26 20:07] VITALS: BP 142/59
[2024-10-26] MEDS: TENORMIN 75 MG PO (22:15)
[2024-10-26] MEDS: APRESOLINE 25 MG PO (22:16)
[2024-10-26] MEDS: PROTONIX 40 MG PO (22:18)
[2024-10-26] MEDS: PEPCID 20 MG PO (22:18)
[2024-10-26] MEDS: NEURONTIN 300 MG PO (22:18)
[2024-10-26] MEDS: NON-FORMULARY ITEM 1 APPLIC LEFT EYE (22:19)
[2024-10-26] MEDS: TOFRANIL 25 MG PO (22:19)
[2024-10-26] MEDS: NON-FORMULARY ITEM 1 UNIT LEFT EYE ×2 (22:19)
--- NOTE | 2024-10-26 22:30 | PTCARENOTE ---
Pt arrived to room 419-01. Pt ambulated from stretcher to bed. Pt AAOx3, VSS. Pt oriented to room, call miller placed within reach.
[2024-10-26] MEDS: MAXIPIME 1000 MG IV (23:01)
[2024-10-26] MEDS: STERILE WATER FOR INJECTION 10 ML IV (23:01)
[2024-10-26 23:40] VITALS: BP 102/74
[2024-10-27] VITALS (7 sets, daily range): BP systolic 127–144; BP diastolic 64–73; BMI 32.4
[2024-10-27] MEDS: MAXIPIME 1000 MG IV ×2 (05:38→11:56)
[2024-10-27] MEDS: STERILE WATER FOR INJECTION 10 ML IV ×2 (05:38→11:56)
[2024-10-27 07:35] LABS: Glucose - Point of Care 105 mg/dl (70-99)
[2024-10-27] MEDS: NOVOLOG FLEXPEN-LOW RESISTANCE SC ×3 (07:55→16:56)
[2024-10-27] MEDS: VISBIOME 1 CAP PO (07:56)
[2024-10-27] MEDS: PROTONIX 40 MG PO ×2 (07:56→20:33)
[2024-10-27] MEDS: LOW STRENGTH ASPIRIN 81 MG PO (07:56)
[2024-10-27] MEDS: GLUCOPHAGE 250 MG PO (07:56)
[2024-10-27] MEDS: VITAMIN D3 (cholecalciferol) 50 MCG PO (07:57)
[2024-10-27] MEDS: APRESOLINE 25 MG PO ×3 (07:57→21:57)
[2024-10-27] MEDS: NEURONTIN 200 MG PO (07:57)
[2024-10-27] MEDS: FEOSOL 325 MG PO (07:57)
[2024-10-27] MEDS: TENORMIN 75 MG PO ×2 (07:57→20:33)
[2024-10-27] MEDS: NON-FORMULARY ITEM 1 UNIT LEFT EYE ×11 (08:01→21:59)
[2024-10-27 08:10] LABS: Blood Urea Nitrogen 18 mg/dl (7-17); Calcium 9.7 mg/dl (8.4-10.2); Carbon Dioxide 27 mmol/L (22-30); Chloride 112 mmol/L (98-107); Estimated Creatinine Clearance 50 ml/min; Glucose 99 mg/dl (70-99); Potassium 4.3 mmol/L (3.5-5.1); Sodium 143 mmol/L (135-145); eGFR > 60.00
[2024-10-27 08:15] LABS: Hematocrit 35.6 % (37.0-47.0); Hemoglobin 11.9 g/dL (12.0-16.0); Mean Corp Hgb Conc. 33.4 g/dL (33.0-37.0); Mean Corpuscular Hgb 33.5 pg (27.0-31.0); Mean Corpuscular Volume 100.3 fL (81.0-99.0); Mean Platelet Volume 9.9 fL (7.4-10.4); Platelet Count 310 10^3/uL (130-400); Red Blood Cell Count 3.55 10^6/uL (4.20-5.40); Red Cell Dist. Width 13.1 % (11.5-14.5); White Blood Cell Count 8.8 10^3/uL (4.8-10.8)
--- NOTE | 2024-10-27 08:28 | W.PN.HOSP.TC ---
Today's Communication/Plan
-
see a/p
Assessment / Plan
Assessment / Plan
Assessment / Plan
#Urinary Tract Infection
-History of Recurrent UTI
-Recently diagnosed outpatient with UTI, was treated as an outpatient with doxycycline
-Reviewed outpatient Urine culture on eCW, positive for Klebsiella
-Reviewed Sensitivity profile of Outpatient culture result, sensitive to Cephalosporins, Bactrim. Resistant to multiple ABX including Zosyn, Augmentin, ciprofloxacin.
-Bactrim allergy not a true Allergy, as patient states hyperkalemia on labs after Bactrim use. No rash, Angioedema.
-Afebrile, Hemodynamically stable on presentation to ED.
-Urine culture ordered, pending
-Initiated on IV cefepime in the ED
-ID input appreciated-transition to IV ertapenem daily for additional 10 days
-Follow-up urinalysis 2 weeks after completing antibiotics course
#T2DM
-On Home Metformin, Rybelsus.
-Coverage with [employer]
-A1C 6.2 08/29/2024
#Essential hypertension
-Continue home atenolol, amlodipine, diltiazem
#CAD s/p stenting of LAD in 2016
-Continue aspirin
#Hyperlipidemia
-Continue Repatha
CODE STATUS full code
DVT prophylaxis Lovenox
Anticipated Discharge: Within 24 hours
Subjective/Interval History
-
Patient seen and examined at bedside. Reports urinary pain and frequency improving compared to the past few days. Overall, denies any acute complaints.
Objective Data
-
Labs:
Laboratory Results
10/27/24
06:56
WBC 8.8
Hgb 11.9 L
Hct 35.6 L
Plt Count 310 D
Sodium 143
Potassium 4.3
Chloride 112 H
Carbon Dioxide 27
BUN 18 H
Creatinine 1.0
Glucose 99
Calcium 9.7
Vital Signs:
Vital Signs
Temp Pulse Resp BP Pulse Ox
98.2 F 72 12 102/74 95
10/26/24 23:40 10/26/24 23:40 10/26/24 23:40 10/26/24 23:40 10/26/24 23:40
I&O
10/26/24 10/27/24 10/28/24
06:59 06:59 06:59
Intake Total 0 / 0
Balance 0 / 0
Review of Systems
-
All other systems: Reviewed and negative (except as documented)
Physical Exam
-
General: Well Developed, Well Nourished and No Apparent Distress
Respiratory: Clear to Auscultation and Non Labored Respirations
Cardiac: Regular Rhythm and S1/S2
GI: Soft, Nontender and Nondistended
Genito-urinary: No Costovertebral Tender
Musculoskeletal: No Clubbing and No Edema
Neuro: Awake, Alert, Oriented and AO x 3
Psych: Calm
[2024-10-27] MEDS: NON-FORMULARY ITEM 1 APPLIC LEFT EYE ×2 (09:19→20:29)
--- NOTE | 2024-10-27 11:18 | CM ---
CM reviewed chart, patient seen bedside, initial assessment completed. Patient resides with her in a one story home, two steps to enter. Patient denies the use of DME, denies VN history, reports history of Neal years ago (). Patient
confirms PCP Tamiko Cabello, Pharmacy [facility] on [address] Patient confirms prescription coverage, denies insecurities at home. Patient remains on IV antibiotics. Patient reports will provide transportation home when stable. CM will
continue to follow for all discharge planning needs.
Plan; home no needs likely
[2024-10-27 11:22] LABS: Glucose - Point of Care 149 mg/dl (70-99)
--- NOTE | 2024-10-27 13:16 | CON.ID ---
Consultation
-
Date/Time Consultation Requested: 10/26/2024 2255
Date/Time Consultation Performed: 10/27/2024 1300
Requesting Provider: Dr. Garland
Performing Provider: Dr. Ledesma
Reason for Consultation: Complicated urinary tract infection
Chief Complaint / Past History
History of Present Illness
Lesly Baac is a 69-year-old female being evaluated at the request of Dr. Garland regarding a complicated urinary tract infection. History is obtained from chart review, along with patient interview. Additional history is obtained from the
patient's who is at the bedside.
Patient recalls that she developed a urinary tract infection around Mother's Day, and at that time she was prescribed Bactrim. She subsequently developed hyper kalemia and was seen in the ER here at [place] on 09/16. She was briefly admitted,
and discharged to home on 09/18. She subsequently returned to the ER on 10/13 secondary to blood being noted in the stool. She was admitted through 10/16, during which time she was treated for ischemic colitis.
Approximately 1 week ago she developed some dysuria, and she was seen at her PCPs office and a urine culture was drawn. The sample reportedly was sent to [facility]. It was decided at that point in time that she has been followed off of
antibiotics to see how she does. Later through the weekend she noted that her urine became somewhat cloudy, and she called her PCP at that point and was placed on doxycycline. Despite antibiotic therapy, she noted no improvement in her
symptomatology and she was sent to the emergency room for further evaluation.
She was admitted, and placed on cefepime. This point in time she reports that she is feeling somewhat improved.
She notes that she drinks approximately 2 to 316 ounce bottles of water per day. She denies any fevers. She denies any abdominal pain, but does note some chills.
Past History
Additional Past Medical History:
CAD
HTN
HLD
DM
CKD
Ischemic colitis
Additional Past Surgical History:
Bilateral TKA
Cataract surgery
Back surgery
BCT with stenting
Allergy History:
Influenza Virus Vaccines Allergy (Verified 10/26/24 16:34)
Guillane barre
latex Allergy (Verified 10/26/24 16:34)
Rash
nitrofurantoin (From Macrobid) Allergy (Verified 10/26/24 16:34)
Rash
sulfamethoxazole (From Bactrim) Allergy (Verified 10/26/24 16:34)
high potassium
trimethoprim (From Bactrim) Allergy (Verified 10/26/24 16:34)
high potassium
Medications Reviewed: Yes
Current Antibiotics:
Cefepime 1 g IV every 6 hours
Social History
Tobacco: Non-Smoker
Alcohol: Occasional
Drug: None
Personal:
Living: With Family
Employment: Retired
Review of Systems
Vital Signs
Temp Pulse Resp BP Pulse Ox
99.3 F 72 18 127/64 90
10/27/24 11:00 10/27/24 11:00 10/27/24 11:00 10/27/24 11:00 10/27/24 11:00
Physical Exam
Physical Exam
Constitutional: No Acute Distress, Comfortable and Non-toxic
Eyes: No Conjunctival Hemorrhage and Sclera Anicteric
Oral: No Thrush and No Ulcers
Cardiovascular: Regular Rate and S1/S2; Negative S3/S4
Pulmonary: Clear; Negative Wheezes or Rales
Gastrointestinal: Soft, Non Tender, Non Distended and Normal Bowel Sounds
Genito-Urinary: Negative CVA Tenderness
Extremities: Edema; Negative Cyanosis or Erythema
Skin: Warm and Dry; Negative Rash or Jaundice
Neurological: Awake and Alert
Psychological: Calm
Lab / Diagnostic Study Results
10/27/24 06:56
10/27/24 06:56
Abs Immat Gran (auto) 0.1 10^3/uL (0-0.05) H 10/26/24 18:52
Absolute Neuts (auto) 9.5 10^3/uL (1.4-6.5) H 10/26/24 18:52
Absolute Lymphs (auto) 1.4 10^3/uL (1.2-3.4) 10/26/24 18:52
Absolute Monos (auto) 1.1 10^3/uL (0.1-0.6) H 10/26/24 18:52
Absolute Basos (auto) 0.1 10^3/uL (0-0.2) 10/26/24 18:52
Immature Gran % 0.6 % (0-0.5) H 10/26/24 18:52
Neutrophils % 76.7 % (42.2-75.2) H 10/26/24 18:52
Lymphocytes % 11.2 % (20.5-51.1) L 10/26/24 18:52
Monocytes % 8.7 % (1.7-9.3) 10/26/24 18:52
Eosinophils % 1.9 % (0-6) 10/26/24 18:52
Basophils % 0.9 % (0-2) 10/26/24 18:52
Ur Squamous Epith Cells 0-2 /LPF (Few) 10/26/24 16:48
Microbiology Results
Micro:
10/26/24 16:48 Urine Culture - Preliminary
Urine Gram negative bacilli
Assessment / Plan
Complicated urinary tract infection
Leukocytosis
CAD
HTN
HLD
DM
CKD
Recommendations:
Given significant resistance noted on culture, patient will need a course of IV therapy.
Transition to once daily ertapenem for ease of administration.
Will place home infusion sheet on paper chart
Continue with antibiotics for an additional 10 days.
PICC line once home infusion benefit confirmed.
Check follow-up urinalysis 2 weeks after completing course of antibiotics.
[2024-10-27] MEDS: INVANZ 60 MG IV (14:34)
[2024-10-27] MEDS: NEURONTIN 300 MG PO ×2 (16:09→20:37)
[2024-10-27 16:46] LABS: Glucose - Point of Care 116 mg/dl (70-99)
[2024-10-27] MEDS: NORVASC 10 MG PO (17:28)
[2024-10-27] MEDS: LOVENOX 40 MG SC (17:28)
[2024-10-27] MEDS: PEPCID 20 MG PO (21:02)
[2024-10-27] MEDS: TOFRANIL 25 MG PO (21:02)
[2024-10-27 21:30] LABS: Glucose - Point of Care 124 mg/dl (70-99)
[2024-10-28 07:00] VITALS: BP 125/60
[2024-10-28 07:48] LABS: Glucose - Point of Care 101 mg/dl (70-99)
[2024-10-28 08:35] LABS: % Basophils 1.1 % (0-2); % Eosinophils 3.9 % (0-6); % Immature Granulocytes 0.6 % (0-0.5); % Lymphocytes 17.1 % (20.5-51.1); % Monocytes 11.6 % (1.7-9.3); % Neutrophils 65.7 % (42.2-75.2); Absolute Basophils 0.1 10^3/uL (0-0.2); Absolute Eosinophils 0.3 10^3/uL (0-0.7); Absolute Immature Granulocytes 0.1 10^3/uL (0-0.05); Absolute Lymphocytes 1.4 10^3/uL (1.2-3.4); Absolute Neutrophils 5.5 10^3/uL (1.4-6.5); Hematocrit 36.5 % (37.0-47.0); Hemoglobin 12.2 g/dL (12.0-16.0); Mean Corp Hgb Conc. 33.4 g/dL (33.0-37.0); Mean Corpuscular Hgb 33.2 pg (27.0-31.0); Mean Corpuscular Volume 99.5 fL (81.0-99.0); Mean Platelet Volume 9.8 fL (7.4-10.4); Nucleated Red Blood Cells % 0 %; Platelet Count 340 10^3/uL (130-400); Red Blood Cell Count 3.67 10^6/uL (4.20-5.40); Red Cell Dist. Width 13.1 % (11.5-14.5); White Blood Cell Count 8.3 10^3/uL (4.8-10.8)
[2024-10-28 09:17] LABS: Blood Urea Nitrogen 20 mg/dl (7-17); Calcium 9.8 mg/dl (8.4-10.2); Carbon Dioxide 26 mmol/L (22-30); Chloride 109 mmol/L (98-107); Estimated Creatinine Clearance 50 ml/min; Glucose 104 mg/dl (70-99); Magnesium 1.7 mg/dl (1.6-2.3); Potassium 3.8 mmol/L (3.5-5.1); Sodium 141 mmol/L (135-145); eGFR > 60.00
[2024-10-28] MEDS: NOVOLOG FLEXPEN-LOW RESISTANCE SC ×3 (09:53→17:37)
[2024-10-28] MEDS: APRESOLINE 25 MG PO ×3 (09:54→21:52)
[2024-10-28] MEDS: VISBIOME 1 CAP PO (09:54)
[2024-10-28] MEDS: VITAMIN D3 (cholecalciferol) 50 MCG PO (09:54)
[2024-10-28] MEDS: NEURONTIN 200 MG PO (09:54)
[2024-10-28] MEDS: FEOSOL 325 MG PO (09:55)
[2024-10-28] MEDS: GLUCOPHAGE 250 MG PO (09:55)
[2024-10-28] MEDS: PROTONIX 40 MG PO ×2 (09:56→20:11)
[2024-10-28] MEDS: TENORMIN 75 MG PO ×2 (09:56→20:11)
[2024-10-28] MEDS: LOW STRENGTH ASPIRIN 81 MG PO (09:56)
[2024-10-28] MEDS: NON-FORMULARY ITEM 1 APPLIC LEFT EYE ×2 (09:59→20:13)
[2024-10-28] MEDS: NON-FORMULARY ITEM 1 UNIT LEFT EYE ×11 (09:59→22:01)
--- NOTE | 2024-10-28 10:58 | CM ---
Addendum entered by Gurpreet Painter 10/28/24 13:06:
Spoke w/ [facility], after reviewing patient's benefits, weekly co pay cost for abx and supplies will be $5. Nursing is 100% covered and will be provided by [facility]. Due to patient's PICC pending and need for cxr following that, [facility] will be unable to prepare medication today as they close at 3 pm today. Therefore, patient will have to d/c tomorrow instead of today and [facility] will arrange for delivery and nurse for Wednesday.
Updated patient bedside
CM will need to fax PICC report, cxr and labs to [facility] when available
Original Note:
Per hospitalist, patient is stable for d/c when home IV abx is set up. Will need abx for additional 10 days
CM faxed script and clinicals to [facility], spoke tc/ Anabell to inform of new patient referral. CM will get a call back once patient's insurance benefits have been reviewed.
PICC not ordered yet at this time
Updated patient bedside
Plan: Home w/ IV abx through [facility]
--- NOTE | 2024-10-28 11:46 | W.PN.HOSP.TC ---
Today's Communication/Plan
-
PICC line
home IV ABX
Assessment / Plan
Assessment / Plan
pt is a 69 year old female
Urinary tract infection--history of recurrent urinary tract infection and follows up with Dr. Palm-- Outpatient urine culture report showing Klebsiella pneumonia--apprec ID--urine culture remains positive with gm neg bacilli--as per ID, PICC
with 10 days of IV ABX of daily ertapenem
Qlj-udphooj-iwobmvldz diabetes mellitus -maintained on metformin and insulin sliding scale--on rebelsus--hold for now
Essential hypertension --continue home medication of atenolol/diltiazem/Norvasc
CAD/HLD--s/p stent--cont asa, repatha
DVT prophylaxis Lovenox
Anticipated Discharge: 24 - 48 hours
Subjective/Interval History
-
Date of Service: October 28, 2024
pt says no one told her about home IV abx
Objective Data
-
Labs:
Laboratory Results
10/28/24
06:28
WBC 8.3
Hgb 12.2
Hct 36.5 L
Plt Count 340
Sodium 141
Potassium 3.8
Chloride 109 H
Carbon Dioxide 26
BUN 20 H
Creatinine 1.0
Glucose 104 H
Calcium 9.8
Vital Signs:
max temp for 24 hours
10/27/24
11:00
Temp 99.3 F
Vital Signs
Temp Pulse Resp BP Pulse Ox
98.3 F 70 16 125/60 94
10/28/24 07:00 10/28/24 07:00 10/28/24 07:00 10/28/24 07:00 10/28/24 07:00
I&O
10/27/24 10/28/24 10/29/24
06:59 06:59 06:59
Intake Total 0 / 0 1200 / 1200 480 / 480
Balance 0 / 0 1200 / 1200 480 / 480
Review of Systems
-
All other systems: Reviewed and negative
Physical Exam
-
General: Well Developed, Well Nourished, No Apparent Distress and Obese
HEENT: Normocephalic and Atraumatic
Respiratory: Clear to Auscultation; Negative Wheezes, Rales or Rhonchi
Cardiac: Regular Rhythm and S1/S2; Negative Murmur
GI: Soft, Nontender, Nondistended and Normal Bowel Sounds
Musculoskeletal: No Clubbing, No Cyanosis and No Edema
Skin: Warm
Neuro: Awake
[2024-10-28 11:49] LABS: Glucose - Point of Care 119 mg/dl (70-99)
[2024-10-28] MEDS: INVANZ 60 MG IV (14:58)
[2024-10-28 15:00] VITALS: BP 145/77
[2024-10-28 16:43] LABS: Glucose - Point of Care 90 mg/dl (70-99)
--- NOTE | 2024-10-28 17:00 | W.PN.ID1 ---
Date of Service
Date of Service: October 28, 2024
Today's Communication
Continue Ertapenem.
Can place midline.
Assessment / Plan
Complicated urinary tract infection with Klebsiella pneumoniae
Leukocytosis - resolved
Allergy to T/Sulfa
CAD
HTN
HLD
DM
CKD
Recommendations:
No oral abx available for patient to treat this strain of Klebsiella; sulfa allergy
Continue once daily ertapenem (d2) for ease of administration x [address] Ledesma placed home infusion sheet on paper chart
Can place midline.
Updated patient and . They are agreeable to midline for home IV abx.
Chief Complaint
-: UTI
Subjective / Review of Systems
at bedside.
Pt feeling better with resolving urinary sxs.
Vital Signs / Physical Exam
Vital Signs
Vital Signs
Temp Pulse Resp BP Pulse Ox
98.0 F 66 16 145/77 96
10/28/24 15:00 10/28/24 15:00 10/28/24 15:00 10/28/24 15:00 10/28/24 15:00
Physical Exam
Constitutional: No Acute Distress and Comfortable
Cardiovascular: Regular Rate and S1/S2
Pulmonary: Clear
Gastrointestinal: Soft, Non Tender and Non Distended
Genito-Urinary: Negative CVA Tenderness
Neurological: AO x 3
Objective Data
Lab Data
Lab Results
10/28/24 06:28
10/28/24 06:28
Estimated Creat Clear 50 ml/min 10/28/24 06:28
Total Bilirubin 0.4 mg/dl (0.2-1.3) 10/26/24 19:37
AST 21 U/L (14-36) 10/26/24 19:37
ALT 20 U/L (0-35) 10/26/24 19:37
Alkaline Phosphatase 65 U/L (38-126) 10/26/24 19:37
Most recent labs reviewed.
Micro Results:
10/26/24 16:48 Urine Culture - Preliminary
Urine Gram negative bacilli
Care Review
Plan reviewed with: Physician (Dr. Velasco)
[2024-10-28] MEDS: LOVENOX 40 MG SC (17:42)
[2024-10-28] MEDS: NORVASC 10 MG PO (17:42)
[2024-10-28] MEDS: NEURONTIN 300 MG PO ×2 (17:44→22:00)
[2024-10-28] MEDS: TYLENOL 650 MG PO (21:51)
[2024-10-28] MEDS: PEPCID 20 MG PO (21:52)
[2024-10-28] MEDS: TOFRANIL 25 MG PO (21:53)
[2024-10-28 22:27] LABS: Glucose - Point of Care 131 mg/dl (70-99)
[2024-10-28 23:37] VITALS: BP 131/62
[2024-10-29 07:34] LABS: Glucose - Point of Care 94 mg/dl (70-99)
[2024-10-29 07:35] VITALS: BP 120/59
--- NOTE | 2024-10-29 08:45 | CM ---
Addendum entered by Juana Kumari 10/29/24 16:33:
Home with [facility] infusion and nurse from infusion company.
Addendum entered by Juana Kumari 10/29/24 09:15:
Midline information faxed to [facility].
Original Note:
Chart reviewed and [facility] offices are closed today, spoke with Rodrigo at after hours service and they will review, PICC line information faxed to [facility] and nurse will be set up through [facility], Per pharmacy team final orders are still
pending and patient may not have infusion finalized today, pharmacy team to follow up with medical case manager today.
Plan; Home with IV ABX and nurse from [facility].
[2024-10-29] MEDS: NOVOLOG FLEXPEN-LOW RESISTANCE SC ×2 (08:50→17:18)
[2024-10-29] MEDS: NON-FORMULARY ITEM 1 UNIT LEFT EYE ×11 (09:31→21:10)
[2024-10-29] MEDS: NON-FORMULARY ITEM 1 APPLIC LEFT EYE ×2 (09:32→20:46)
[2024-10-29] MEDS: TENORMIN 75 MG PO ×2 (09:32→20:47)
[2024-10-29] MEDS: ASPIR LOW (ENTERIC COATED) 81 MG PO (09:33)
[2024-10-29] MEDS: NEURONTIN 200 MG PO (09:34)
[2024-10-29] MEDS: APRESOLINE 25 MG PO ×3 (09:34→21:10)
[2024-10-29] MEDS: GLUCOPHAGE 250 MG PO (09:34)
[2024-10-29] MEDS: PROTONIX 40 MG PO ×2 (09:34→20:46)
[2024-10-29] MEDS: VITAMIN D3 (cholecalciferol) 50 MCG PO (09:35)
[2024-10-29] MEDS: FEOSOL 325 MG PO (09:35)
[2024-10-29] MEDS: VISBIOME 1 CAP PO (09:35)
[2024-10-29 11:45] LABS: Glucose - Point of Care 159 mg/dl (70-99)
--- NOTE | 2024-10-29 11:48 | W.PN.HOSP.TC ---
Today's Communication/Plan
-
setting up home IV abx
Assessment / Plan
Assessment / Plan
pt is a 69 year old female
Kleb pneumoniae Urinary tract infection--history of recurrent urinary tract infection and follows up with Dr. Palm-- Outpatient urine culture report showing Klebsiella pneumonia--apprec ID--as per ID, PICC with 10 days of IV ABX of daily
ertapenem--midline placed--anticipate d/c tomorrow 10/30
Lyh-ccshcja-dgeibbqst diabetes mellitus -maintained on metformin and insulin sliding scale--on rebelsus--hold for now
Essential hypertension --continue home medication of atenolol/diltiazem/Norvasc
CAD/HLD--s/p stent--cont asa, repatha
DVT prophylaxis Lovenox
Anticipated Discharge: Within 24 hours
Subjective/Interval History
-
Date of Service: October 29, 2024
pt without c/o
Objective Data
-
Vital Signs:
max temp for 24 hours
10/29/24
07:35
Temp 98.1 F
Vital Signs
Temp Pulse Resp BP Pulse Ox
98.1 F 65 18 120/59 92
10/29/24 07:35 10/29/24 07:35 10/29/24 07:35 10/29/24 07:35 10/29/24 07:35
I&O
10/28/24 10/29/24 10/30/24
06:59 06:59 06:59
Intake Total 1200 / 1200 720 / 720 480 / 480
Balance 1200 / 1200 720 / 720 480 / 480
Review of Systems
-
All other systems: Reviewed and negative
Physical Exam
-
General: Well Developed, Well Nourished and No Apparent Distress
HEENT: Normocephalic and Atraumatic
Respiratory: Clear to Auscultation; Negative Wheezes or Rhonchi
Cardiac: Regular Rhythm and S1/S2; Negative Murmur
GI: Soft, Nontender, Nondistended and Normal Bowel Sounds
Musculoskeletal: No Clubbing, No Cyanosis and No Edema
Neuro: Awake and Alert
Psych: Calm
--- NOTE | 2024-10-29 12:02 | W.PN.ID1 ---
Date of Service
Date of Service: October 29, 2024
Today's Communication
Continue Ertapenem.
Assessment / Plan
Complicated urinary tract infection with Klebsiella pneumoniae
Leukocytosis - resolved
Allergy to T/Sulfa
CAD
HTN
HLD
DM
CKD
Recommendations:
No oral abx available for patient to treat this strain of Klebsiella; sulfa allergy
Continue once daily ertapenem (d3) for ease of administration x 10 days, as per Dr. Ledesma
Dr. Ledesma placed home infusion sheet on paper chart. Case management on board to set up home IV abx.
Chief Complaint
-: UTI
Subjective / Review of Systems
Urine sxs resolved.
Vital Signs / Physical Exam
Vital Signs
Vital Signs
Temp Pulse Resp BP Pulse Ox
98.1 F 65 18 120/59 92
10/29/24 07:35 10/29/24 07:35 10/29/24 07:35 10/29/24 07:35 10/29/24 07:35
Physical Exam
Constitutional: No Acute Distress
Cardiovascular: Regular Rate and S1/S2
Pulmonary: Clear
Gastrointestinal: Soft, Non Tender and Non Distended
Genito-Urinary: Negative CVA Tenderness
Neurological: AO x 3
Lines: Other (RUE midline dressing dry)
Objective Data
Lab Data
Lab Results
10/28/24 06:28
10/28/24 06:28
Estimated Creat Clear 50 ml/min 10/28/24 06:28
Total Bilirubin 0.4 mg/dl (0.2-1.3) 10/26/24 19:37
AST 21 U/L (14-36) 10/26/24 19:37
ALT 20 U/L (0-35) 10/26/24 19:37
Alkaline Phosphatase 65 U/L (38-126) 10/26/24 19:37
Most recent labs reviewed.
Micro Results:
10/26/24 16:48 Urine Culture - Final
Urine Klebsiella pneumoniae
[2024-10-29] MEDS: NOVOLOG FLEXPEN-LOW RESISTANCE 1 UNITS SC (13:58)
[2024-10-29] MEDS: INVANZ 60 MG IV (14:03)
[2024-10-29] MEDS: FLUSH (NSS) 1 FLUSH IV (14:04)
[2024-10-29 15:29] VITALS: BP 136/95
[2024-10-29 16:41] LABS: Glucose - Point of Care 114 mg/dl (70-99)
[2024-10-29] MEDS: NEURONTIN 300 MG PO ×2 (17:14→20:51)
[2024-10-29] MEDS: LOVENOX 40 MG SC (17:14)
[2024-10-29] MEDS: NORVASC 10 MG PO (17:16)
[2024-10-29] MEDS: TOFRANIL 25 MG PO (20:47)
[2024-10-29] MEDS: PEPCID 20 MG PO (20:47)
[2024-10-29 21:40] LABS: Glucose - Point of Care 98 mg/dl (70-99)
[2024-10-29 23:43] VITALS: BP 117/55
[2024-10-30 07:34] VITALS: BP 137/66
[2024-10-30 08:17] LABS: Glucose - Point of Care 105 mg/dl (70-99)
[2024-10-30] MEDS: NOVOLOG FLEXPEN-LOW RESISTANCE SC ×2 (08:26→12:03)
[2024-10-30] MEDS: ASPIR LOW (ENTERIC COATED) 81 MG PO (08:38)
[2024-10-30] MEDS: PROTONIX 40 MG PO (08:38)
[2024-10-30] MEDS: GLUCOPHAGE 250 MG PO (08:39)
[2024-10-30] MEDS: TENORMIN 75 MG PO (08:42)
[2024-10-30] MEDS: VITAMIN D3 (cholecalciferol) 50 MCG PO (08:42)
[2024-10-30] MEDS: NEURONTIN 200 MG PO (08:42)
[2024-10-30] MEDS: FEOSOL 325 MG PO (08:43)
[2024-10-30] MEDS: VISBIOME 1 CAP PO (08:43)
[2024-10-30] MEDS: APRESOLINE 25 MG PO ×2 (08:43→16:29)
[2024-10-30] MEDS: NON-FORMULARY ITEM 1 UNIT LEFT EYE ×6 (08:46→16:30)
[2024-10-30] MEDS: ESTRACE 0.01% VAGINAL CREAM 1 APPLIC VAG (08:52)
[2024-10-30] MEDS: NON-FORMULARY ITEM 1 APPLIC LEFT EYE (09:18)
--- NOTE | 2024-10-30 09:34 | W.PN.ID1 ---
Date of Service
Date of Service: October 30, 2024
Today's Communication
Continue Ertapenem.
Assessment / Plan
Complicated urinary tract infection with Klebsiella pneumoniae
Leukocytosis - resolved
Allergy to T/Sulfa
CAD
HTN
HLD
DM
CKD
Recommendations:
No oral abx available for patient to treat this strain of Klebsiella; sulfa allergy
Continue once daily ertapenem (d4) for ease of administration x 10 days, as per Dr. Ledesam
Dr. Ledesma placed home infusion sheet on paper chart. Case management on board to set up home IV abx.
DC home when home IV set up.
Chief Complaint
-: UTI
Subjective / Review of Systems
hopint to go home today.
Vital Signs / Physical Exam
Vital Signs
Vital Signs
Temp Pulse Resp BP Pulse Ox
97.8 F 71 16 137/66 94
10/30/24 07:34 10/30/24 08:43 10/30/24 07:34 10/30/24 08:43 10/30/24 07:34
Physical Exam
Constitutional: No Acute Distress
Cardiovascular: Regular Rate and S1/S2
Pulmonary: Clear
Gastrointestinal: Soft, Non Tender and Non Distended
Genito-Urinary: Negative CVA Tenderness
Neurological: AO x 3
Lines: Other (RUE midline dressing dry)
Objective Data
Lab Data
Lab Results
10/28/24 06:28
10/28/24 06:28
Estimated Creat Clear 50 ml/min 10/28/24 06:28
Total Bilirubin 0.4 mg/dl (0.2-1.3) 10/26/24 19:37
AST 21 U/L (14-36) 10/26/24 19:37
ALT 20 U/L (0-35) 10/26/24 19:37
Alkaline Phosphatase 65 U/L (38-126) 10/26/24 19:37
Most recent labs reviewed.
Micro Results:
10/26/24 16:48 Urine Culture - Final
Urine Klebsiella pneumoniae
--- NOTE | 2024-10-30 11:34 | PTCARENOTE ---
Assumed care of pt from previous nurse. pt denies pain. Pt for possible dc today. Pt call miller is within reach, pt rings carlyn. will cont to monitor.
[2024-10-30 12:00] LABS: Glucose - Point of Care 117 mg/dl (70-99)
--- NOTE | 2024-10-30 12:22 | CM ---
Addendum entered by Juana Kumari 10/30/24 16:11:
Per [facility], patient is set up to d/c today
Spoke w/ patient bedside, confirmed that teaching was completed, there is no nurse available to come to her home tomorrow so she will have to go to the infusion center in [place], stated her daughter will be able to take her.
Delivery of abx and supplies will be later tonight
IMM verbally reviewed, copy provided, copy on chart
Addendum entered by Gurpreet Painter 10/30/24 12:47:
Per [facility], delivery was not sent out, she will need to meet w/ patient this afternoon to complete bedside teaching prior to d/c. Damaris stated she has another teaching w/ a patient at 1:30 and will see patient afterwards later this afternoon. Will
discuss delivery w/ patient at that time
Original Note:
Chart reviewed. Patient needing additional days of IV abx. [facility] infusion has already been set up for patient.
CM attempted call to [facility] liaison to confirm delivery of medication to patient's home, left message
Spoke w/ patient who stated that the nurse from [facility] called her to inform of 2:30 time to come to their home, however, he cancelled this visit as there was no delivery yet. Per hospitalist, patient can receive her dose at 2 pm and can
d/c afterwards, patient is okay w/ that plan but would like to know when the delivery will occur first.
Plan: Home; hopefully today w/ [facility]
--- NOTE | 2024-10-30 12:32 | W.DCSUMMARY ---
Discharge Summary
Discharge Data
Date of Admission: 10/26/24
Date of Discharge: 10/30/24
-
Pending Results: No
Hospital Course
Kleb pneumoniae Urinary tract infection--history of recurrent urinary tract infection and follows up with Dr. Palm-- Outpatient urine culture report showing Klebsiella pneumonia--apprec ID--as per ID, PICC with 10 days of IV ABX of daily
ertapenem--midline placed--
Zds-mqlyika-[id number] diabetes mellitus -maintained on metformin and insulin sliding scale--on rebelsus--hold for now
Essential hypertension --continue home medication of atenolol/diltiazem/Norvasc
CAD/HLD--s/p stent--cont asa, repatha
Discharge Plan
-
Patient Disposition: Home with Home Care
Discharge Diagnosis/Procedures: Klebsiella pneumoniae urinary tract infection, type II yyg-[id number]-[id number] diabetes mellitus, essential hypertension, coronary artery disease, hyperlipidemia
Condition: Good
Diet: Diabetic, Carb Controlled
Activity: As tolerated
Driving Restrictions: As prior to admission
Bathing Restrictions: Keep midline site covered
Referrals:
Arlene Cabello DO [Family Provider, Family Practice] - in less than 1 week
Prescriptions:
New
Ertapenem [Invanz] 1000 MG
0.9% Sodium Chloride [Nss] 50 ML
120 mls/hr IV Q24H
Ordered By: Akbar Ball MD
Last Taken: 10/29/24 14:03 60 mls
Continued
atenolol 50 MG tablet
75 mg PO BID
metformin 500 MG tablet
250 mg PO DAILY
ferrous sulfate [FeroSul] 325 MG tablet
325 mg PO DAILY
Repatha SureClick 140 MG/ML pen injector
140 mg SQ Q2W
De3 Dry Eye Tobias Benefits 1 EACH capsule
1 cap PO BID
hydralazine 25 mg tablet
25 mg PO TID
omeprazole 20 mg Capsule,Delayed Release(Dr/Ec)
20 mg PO BID
gabapentin 100 mg Capsule
200 mg PO DAILY
imipramine HCl 25 mg Tablet
25 mg PO HS
Visbiome 112.5 billion cell Capsule
1 cap PO DAILY
gabapentin 300 mg capsule
300 mg PO BID
famotidine 40 mg Tablet
20 mg PO HS Qty: 0 0RF
mupirocin 2 % Ointment
1 applic TOPICAL TIDPRN PRN (Reason: toe)
estradiol [Estrace] 0.01 % (0.1 mg/gram) Cream
1 g VAGINAL MOFR
Rybelsus 3 mg Tablet
3 mg PO DAILY
polyethylene glycol 3350 [Miralax] 17 gram Powder In Packet
8.5 - 17 g PO Q48H
ofloxacin 0.3 % Drops
1 drp LEFT EYE QID
aspirin 81 mg Tablet,Delayed Release (Dr/Ec)
81 mg PO DAILY
acetaminophen [Tylenol Extra Strength] 500 mg Tablet
1,000 mg PO TIDPRN PRN (Reason: mild pain)
cyclopentolate 1 % Drops
1 drp LEFT EYE TID
prednisolone acetate 1 % Drops,Suspension
1 drp LEFT EYE QID
olmesartan 40 mg Tablet
40 mg PO DAILY
cholecalciferol (vitamin D3) 50 mcg (2,000 unit) Capsule
50 mcg PO DAILY
amlodipine 10 MG tablet
10 mg PO HS
sodium chloride 5 % HYPERTONIC ointment
ophthalmic (eye)
Rx Instructions:
LT eye, one application.
Discontinued
doxycycline hyclate 100 mg Tablet
100 mg PO Q12H
Patient Comments:
10/26/2024, filled on 10/23/2024 and instructed to take 1 tablet Q12H for 7 days.
Discharge Orders:
Discharge Patient (As Directed); Ordered 10/30/24
Ordered By: Akbar Ball
Discharge Date and Time
Print Language: IRISH
[2024-10-30] MEDS: INVANZ 60 MG IV (14:06)
[2024-10-30 15:16] VITALS: BP 146/81
[2024-10-30] MEDS: NEURONTIN 300 MG PO (16:29)
--- NOTE | 2024-10-30 17:05 | PTCARENOTE ---
Pt dc'd to home with VN for home infusion. Pt left with a midline. Pt paperwork reviewed and copy provided. Pt left with via w/c.
== END 2024-10-30 17:33 | disposition home or self-care (01) | DRG 690 ==
LOC: 4 WEST ACU 19:53
PROVIDERS: Emergency Medicine; Nurse Practitioner; Student in an Organized Health Care Education/Training Program; ADMITTING PHYSICIAN Internal Medicine; ATTENDING PHYSICIAN Internal Medicine; EMERGENCY PHYSICIAN Emergency Medicine; FAMILY PHYSICIAN Family Medicine; OTHER PHYSICIAN Internal Medicine Infectious Disease
DX: N39.0 Urinary tract infection, site not specified (principal); K55.9 Vascular disorder of intestine, unspecified; Z16.11 Resistance to penicillins; B96.1 Klebsiella pneumoniae [K. pneumoniae] as the cause of diseases classified elsewhere; N18.9 Chronic kidney disease, unspecified; E11.22 Type 2 diabetes mellitus with diabetic chronic kidney disease; Z79.84 Long term (current) use of oral hypoglycemic drugs; Z79.4 Long term (current) use of insulin; I12.9 Hypertensive chronic kidney disease with stage 1 through stage 4 chronic kidney disease, or unspecified chronic kidney disease; I25.10 Atherosclerotic heart disease of native coronary artery without angina pectoris; E78.00 Pure hypercholesterolemia, unspecified; E87.5 Hyperkalemia; Z87.440 Personal history of urinary (tract) infections; Z94.7 Corneal transplant status; Z96.653 Presence of artificial knee joint, bilateral; Z88.2 Allergy status to sulfonamides; Z88.7 Allergy status to serum and vaccine; Z91.040 Latex allergy status
CPT/HCPCS: 80048; 80053; 81003; 81015; 82962; 83735; 85025; 85027; 87077; 87086; 87186; 96374; 99284; J1335

== ENCOUNTER → 2025-02-28 09:45 | Outpatient (REF) | payer OTHER, SELFPAY | LOC: HWRAD 09:45 | PROVIDERS: ATTENDING PHYSICIAN Otolaryngology; FAMILY PHYSICIAN Family Medicine | DX: E04.2 Nontoxic multinodular goiter (principal) | CPT/HCPCS: 76536 ==

== ENCOUNTER → 2025-03-06 15:17 | Outpatient (REF) | payer OTHER, SELFPAY | LOC: RAD 15:17 | PROVIDERS: ATTENDING PHYSICIAN Family Medicine | DX: Z91.81 History of falling (principal); S09.90XA Unspecified injury of head, initial encounter | CPT/HCPCS: 70450 ==

== ENCOUNTER 2025-04-06 06:47 | Outpatient (RCR) | payer OTHER, SELFPAY | END 2025-04-06 23:59 | disposition home or self-care (01) | LOC: RPT 06:47 | PROVIDERS: ATTENDING PHYSICIAN Family Medicine | DX: M54.40 Lumbago with sciatica, unspecified side (principal); Z73.6 Limitation of activities due to disability; R26.89 Other abnormalities of gait and mobility; G89.29 Other chronic pain | CPT/HCPCS: 97110; 97112; 97162 ==

== ENCOUNTER → 2025-04-12 09:33 | Outpatient (REF) | payer OTHER, SELFPAY | LOC: HWWDC 09:33 | PROVIDERS: ATTENDING PHYSICIAN Family Medicine | DX: Z12.31 Encounter for screening mammogram for malignant neoplasm of breast (principal) | CPT/HCPCS: 77063; 77067 ==

== ENCOUNTER 2025-04-25 08:22 | Outpatient (RCR) | payer OTHER, SELFPAY | END 2025-04-30 23:59 | disposition home or self-care (01) | LOC: RPT 08:22 | PROVIDERS: ATTENDING PHYSICIAN Family Medicine | DX: M54.40 Lumbago with sciatica, unspecified side (principal); Z73.6 Limitation of activities due to disability; R26.89 Other abnormalities of gait and mobility; G89.29 Other chronic pain | CPT/HCPCS: 97110; 97112 ==

== ENCOUNTER → 2025-04-30 12:00 | Outpatient (REF) | payer OTHER, SELFPAY | LOC: DHSLP 12:00 | PROVIDERS: ATTENDING PHYSICIAN Internal Medicine Critical Care Medicine; FAMILY PHYSICIAN Family Medicine | DX: G47.33 Obstructive sleep apnea (adult) (pediatric) (principal) | CPT/HCPCS: 95800 ==